=== PATIENT | male | born 1990 | race African-American/Black ===

== ENCOUNTER 2022-10-03 15:09 | Emergency (ER) | payer MEDICAID, SELFPAY ==
[2022-10-03 15:16] VITALS: BP 115/72; PULSE 81; RESP 20; TEMP 36.2; O2SAT 99; BMI 24.4
--- NOTE | 2022-10-03 15:41 | ED.GENADULT ---
HPI - General Adult General Time Seen by Provider: 15:41 Date Seen: 10/03/22 Chief complaint: Skin/Abscess/Foreign Body Stated complaint: Possible infected hemroids Time Seen by Provider: 10/03/22 15:12 Source: patient Mode of arrival: ambulatory Limitations: no limitations History of Present Illness HPI narrative: Patient is a pleasant 32-year-old black male who has had longstanding hemorrhoidal tissue and has been instructed to get surgery in the past. He notices when he has a bowel movement he has some protruding hemorrhoids. He has nothing external or any bleeding now, he has had limited output of bowel for the last couple of days. He has had some generalized pain in the area. He has had no fever chills. He is afebrile now. He is otherwise quite healthy. He is living with his friend in [place] currently. Related Data Allergies Allergy/AdvReac Type Severity Reaction Status Date / Time No Known Drug Allergies Allergy Verified 10/03/22 15:16 Review of Systems Status of ROS: Reports: 6 or more systems reviewed and unremarkable except as noted in History and below PFSH PFS Social History Smoking Status: Current every day smoker What tobacco products do you use: cigarettes Smoking packs per day: 1 Smoking cigarettes per day: 20.0 Years smoked: 15 Smoking pack-years: 15.00 Do you use any of these nicotine containing products: E-Cigarettes and Vaping Products Second hand tobacco smoke exposure: Yes How often do you have a drink containing alcohol: monthly or less How many standard drinks containing alcohol do you have on a typical day: 1 or 2 How often do you have six or more drinks on one occasion: Never AUDIT-C Alcohol total score: 1 Non-prescribed substance use: marijuana (any form), crack/cocaine and amphetamines/methamphetamines service: No Exam Narrative: Exam Narrative: Objective vital signs unremarkable in general patient apparent distress The patient's external rectal exam shows some hemorrhoidal tags he has got 1 small nonthrombosed hemorrhoid at about 4:00 a.m. Const: Vital Signs, click to edit/add: Vital Signs - 24 hr 10/03/22 15:16 Temperature 97.2 F L Pulse Rate [Pulse Oximeter] 81 Respiratory Rate 20 Blood Pressure [Le ft Upper Arm] 115/72 Pulse Oximetry 99 Oxygen Delivery Me thod Room Air Course Vital Signs Vital signs: Initial Vital Signs Temperature 97.2 F L 10/03/22 15:16 Temperature Source Temporal Artery Scan 10/03/22 15:16 Pulse Rate 81 10/03/22 15:16 Pulse Rhythm 10/03/22 15:16 Respiratory Rate 20 10/03/22 15:16 Blood Pressure 115/72 10/03/22 15:16 Blood Pressure Mean 86 10/03/22 15:16 Blood Pressure Position Right Lateral 10/03/22 15:16 Pulse Oximetry 99 10/03/22 15:16 Oxygen Delivery Method 10/03/22 15:16 Vital Signs Temperature 97.2 F L 10/03/22 15:16 Pulse Rate 81 10/03/22 15:16 Respiratory Rate 20 10/03/22 15:16 Blood Pressure 115/72 10/03/22 15:16 Pulse Oximetry 99 10/03/22 15:16 Oxygen Delivery Method 10/03/22 15:16 Temperature 97.2 F L 10/03/22 15:16 Pulse Rate 81 10/03/22 15:16 Respiratory Rate 20 10/03/22 15:16 Blood Pressure 115/72 10/03/22 15:16 Pulse Oximetry 99 10/03/22 15:16 Oxygen Delivery Method 10/03/22 15:16 Medical Decision Making MDM Narrative Medical decision making narrative: Patient is a 32-year-old male with a history of hemorrhoidal tissue what sounds like internal hemorrhoids that prolapse somewhat with a bowel movement. I think at this point he appears stable and would recommend some Anusol cream topically, he can use some Ultram as needed for discomfort, and will given Colace and Senokot recommendation. Will give him the number for the General surgery Clinic to follow up and get likely anoscopy and consideration of his situation. Return sooner problems or concerns. Discharge Plan Discharge Clinical Impression: Anal or rectal pain, Hemorrhoids Patient Disposition: Home w/ Parent or Adult Condition: Stable Instructions: Hemorrhoids (ED) Additional Instructions: Colace and Senokot as prescribed, Ultram as needed for pain, warm soaks in the bathtub 2 times a day for the next 5 days, general surgery appointment with our clinic, phone number is [phone]. Activity Level: Light activity Discharge Diet: Regular Stand Alone Forms: [facility] Info Instructions
[2022-10-03] MEDS: TRAMADOL HCL 50 MG TABLET 100 MG PO (15:44)
== END 2022-10-03 16:19 | disposition home or self-care (01) ==
LOC: ED 16:16
PROVIDERS: Emergency Provider Family Medicine
DX: K64.8 Other hemorrhoids (principal); K62.89 Other specified diseases of anus and rectum
CPT/HCPCS: 99283; A9270

== ENCOUNTER 2022-10-08 09:33 | Emergency (ER) | payer MEDICAID, SELFPAY ==
[2022-10-08 09:41] VITALS: BP 125/102; PULSE 86; RESP 20; TEMP 36.4; O2SAT 97; BMI 25.1
--- NOTE | 2022-10-08 09:47 | CRLHL7_ITS ---
For Patients: As a result of the Century Cures Act, medical imaging exams and procedure reports are released immediately into your electronic medical record. You may view this report before your referring provider. If you have questions, please contact your health care provider. INDICATION: Rectal pain. TECHNIQUE: CT abdomen and pelvis acquired with 83 cc Isovue 370 IV contrast. COMPARISON: None. FINDINGS: Lower chest: Scattered atelectasis. Liver: Focal fatty infiltration adjacent to the falciform ligament. Normal in size and attenuation. No suspicious masses. Gallbladder and bile ducts: Unremarkable. No stones or inflammation. No biliary dilatation. Pancreas: Unremarkable. No mass or inflammation. Spleen: Unremarkable. Normal in size. No masses. Adrenal glands: Bilateral adrenal gland nodules with low attenuation, statistically likely adenomas. Kidneys: Unremarkable. No suspicious masses, stones, or hydronephrosis. GI tract: Unremarkable. Normal in caliber. No sign of mass or inflammation. Normal appendix. Vasculature: Abdominal aorta is normal in caliber. Mesenteric arteries are patent. Lymph nodes: No lymphadenopathy. Peritoneum/Abdominal Wall: Unremarkable. No sign of mass or infiltration. No free air or significant free fluid. Pelvis: Unremarkable. Bones: Unremarkable for age. IMPRESSION: No acute intra-abdominal/pelvic abnormality, including drainable fluid collection. Please note that all CT scans at this facility use dose modulation, iterative reconstruction, and/or weight-based dosing when appropriate to reduce radiation dose to as low as reasonably achievable. Dictated by Kranthi Uriostegui MD @ 10/08/2022 12:47:48 PM (Electronically Signed)
--- NOTE | 2022-10-08 09:57 | ED_ITS ---
HPI - General Adult General Chief complaint: Skin/Abscess/Foreign Body Stated complaint: Hemorrhoids Time Seen by Provider: 10/08/22 09:44 History of Present Illness HPI narrative: Pt is a 32 year old gentleman who presents with several days of rectal pain. Pt states that he has a history of hemorrhoids and rectal fissures. Pt states the pain is awful. Pt sought care at [facility] last night but he found the care to be slow and insufficient. Pt has not been constipated. No change in his stool. No fevers or chills. No nausea or vomiting. Pt does note some puss drainage from his rectum. Pt has had previous episodes of rectal pain as above but today's issues are much worse. Pain extends out from his anus several centimeters in all directions. Related Data Previous Rx's Medication Instructions Recorded acetaminophen 300 mg-codeine 30 mg 1 tab PO BID PRN pain #10 tabs 10/08/22 tablet metronidazole 375 mg capsule 375 mg PO BID Proctitis #14 caps 10/08/22 (Flagyl) prednisone 20 mg tablet 20 mg PO BID #10 tabs 10/08/22 Allergies Allergy/AdvReac Type Severity Reaction Status Date / Time No Known Drug Allergies Allergy Verified 10/08/22 11:27 Review of Systems Status of ROS: Reports: 10 or more systems reviewed and unremarkable except as noted in History and below [facility] Social History Smoking Status: Current every day smoker What tobacco products do you use: cigarettes Smoking packs per day: 1 Smoking cigarettes per day: 20.0 Years smoked: 15 Smoking pack-years: 15.00 Do you use any of these nicotine containing products: E-Cigarettes and Vaping Products Second hand tobacco smoke exposure: Yes How often do you have a drink containing alcohol: monthly or less How many standard drinks containing alcohol do you have on a typical day: 1 or 2 How often do you have six or more drinks on one occasion: Never AUDIT-C Alcohol total score: 1 Non-prescribed substance use: marijuana (any form), crack/cocaine and amphetamines/methamphetamines service: No Exam Narrative: Exam Narrative: EXAM GENERAL: Patient appears comfortable and well. EYES: No scleral icterus. ENT: Tympanic membranes and oropharynx normal. THYROID: no thyroid nodules or thyromegaly. LYMPH: No supraclavicular or cervical lymphadenopathy. SKIN: Visible skin seen during exam normal or with benign process only. EXT: No dependent lower extremity pedal edema. HEART: Regular rate and rhythm with no murmurs, rubs, or gallops. LUNGS: Clear to auscultation bilaterally with no crackles or wheezes. ABD: Soft, non tender, non distended. PSYCH: Good eye contact, speech is not pressured. Rectal exam shows redundant hemorrhoid tissue with surrounding mild erythema and swelling. There is a small amount of exudative drainage from the rectal tissue. The external inspection was exquisitely tender and I did not insert my finger. Const: Vital Signs, click to edit/add: Vital Signs - 24 hr 10/08/22 09:41 10/08/22 11:50 10/08/22 13:30 Temperature 97.6 F 97.2 F L Pulse Rate [Pulse Oximeter] 86 87 68 Respiratory Rate 20 20 20 Blood Pressure [Le ft Upper Arm] 125/102 H 122/88 123/71 Pulse Oximetry 97 97 98 Oxygen Delivery Me thod Room Air Room Air Room Air Course Course Hospital Course: Pt seen and examined. CT abd and pelvis, CBC, CMP, ESR, UA, blood cultures ordered. Reevaluation(s) Reevaluation #1: CT abd pelvis unremarkable. Pt's labs unremarkable except mild leukocytosis. GC/Chlamydia swab collected from anus. Time: 13:14 Vital Signs Vital signs: Initial Vital Signs Temperature 97.6 F 10/08/22 09:41 Temperature Source Temporal Artery Scan 10/08/22 09:41 Pulse Rate 86 10/08/22 09:41 Respiratory Rate 20 10/08/22 09:41 Blood Pressure 125/102 H 10/08/22 09:41 Blood Pressure Mean 109 10/08/22 09:41 Blood Pressure Position Left Lateral 10/08/22 09:41 Pulse Oximetry 97 10/08/22 09:41 Oxygen Delivery Method 10/08/22 09:41 Vital Signs Temperature 97.6 F 10/08/22 09:41 Pulse Rate 86 10/08/22 09:41 Respiratory Rate 20 10/08/22 09:41 Blood Pressure 125/102 H 10/08/22 09:41 Pulse Oximetry 97 10/08/22 09:41 Oxygen Delivery Method 10/08/22 09:41 Temperature 97.2 F L 10/08/22 11:50 Pulse Rate 68 10/08/22 13:30 Respiratory Rate 20 10/08/22 13:30 Blood Pressure 123/71 10/08/22 13:30 Pulse Oximetry 98 10/08/22 13:30 Oxygen Delivery Method 10/08/22 13:30 Medical Decision Making MDM Narrative Medical decision making narrative: Pt is a 32 year old who comes in with severe rectal pain. Pt's evaluation showed old hemorroidal tissue on inspection with exudative drainage from the anus. No fissure seen. Exam was very painful. Pts CT unremarkable. Leukocytosis noted on lab. Pt denies rectal intercourse or STD history. Pt give Toradol and Dilaudid. Pt's anus cultured and GC Chlamydia collected. Will treat as proctitis with Prednisone and Flagyl with close follow up. Pt does not have a primary doctor. He can see me back in the office. Differential Diagnosis Differential Diagnosis: Protitis, Prostatitis, Inflamatory Bowel Disease, Perirectal Abscess, Lab Data Labs: Lab Results 10/08/22 10/08/22 10/08/22 Range/Units 10:00 10:00 10:00 WBC 12.02 H (4.50-11.00) K/uL RBC 5.44 (4.30-5.90) m/uL Hgb 17.0 (13.5-17.5) gm/dL Hct 48.3 (37.0-53.0) % MCV 89 (80-100) fL MCH 31 (26-34) pg MCHC 35 (32-36) gm/dL RDW Coeff of Antonio 12.1 (11.5-15.5) % Plt Count 234 (140-440) K/uL Neut % (Auto) 51.7 (42.0-72.0) % Lymph % (Auto) 34.9 (20-44) % Refugio % (Auto) 9.6 (0.0-11.0) % Eos % (Auto) 3.1 (0.0-7.0) % Baso % (Auto) 0.5 (0.0-3.0) % Neut # (Auto) 6.20 (1.7-7.0) K/uL Lymph # (Auto) 4.20 H (0.90-2.90) K/uL Refug[place] # (Auto) 1.20 H (0.00-0.90) K/UL Eos # (Auto) 0.40 (0.00-0.50) K/uL Baso # (Auto) 0.10 (0.00-0.30) K/uL ESR 11 (2-15) mm/hr Sodium 139 (135-149) mmol/L Potassium 3.7 (3.6-5.1) mmol/L Chloride 98 (96-114) mmol/L Carbon Dioxide 32 (20-32) mmol/L BUN 11 (5-24) mg/dL Creatinine 1.2 (0.5-1.5) mg/dL Estimated Creat Clear 89.19 Estimated GFR 83 ml/min Glucose 92 (60-115) mg/dL Calcium 10.1 (8.4-10.6) mg/dL Total Bilirubin 0.5 (0.1-1.5) mg/dL AST 34 (12-35) U/L ALT 26 (4-50) U/L Alkaline Phosphatase 89 (40-150) U/L Total Protein 8.8 H (6.0-8.3) g/dL Albumin 5.0 (3.3-5.0) g/dL C.trachomatis RNA (TMA) Chlamydia/GC Media Type N.gonorrhoeae Source D N.gonorrhoeae RNA TMA 10/08/22 Range/Units 13:15 WBC (4.50-11.00) K/uL RBC (4.30-5.90) m/uL Hgb (13.5-17.5) gm/dL Hct (37.0-53.0) % MCV (80-100) fL MCH (26-34) pg MCHC (32-36) gm/dL RDW Coeff of Antonio (11.5-15.5) % Plt Count (140-440) K/uL Neut % (Auto) (42.0-72.0) % Lymph % (Auto) (20-44) % [place] % (Auto) (0.0-11.0) % Eos % (Auto) (0.0-7.0) % Baso % (Auto) (0.0-3.0) % Neut # (Auto) (1.7-7.0) K/uL Lymph # (Auto) (0.90-2.90) K/uL [place]ug[place] # (Auto) (0.00-0.90) K/UL Eos # (Auto) (0.00-0.50) K/uL Baso # (Auto) (0.00-0.30) K/uL ESR (2-15) mm/hr Sodium (135-149) mmol/L Potassium (3.6-5.1) mmol/L Chloride (96-114) mmol/L Carbon Dioxide (20-32) mmol/L BUN (5-24) mg/dL Creatinine (0.5-1.5) mg/dL Estimated Creat Clear Estimated GFR ml/min Glucose (60-115) mg/dL Calcium (8.4-10.6) mg/dL Total Bilirubin (0.1-1.5) mg/dL AST (12-35) U/L ALT (4-50) U/L Alkaline Phosphatase (40-150) U/L Total Protein (6.0-8.3) g/dL Albumin (3.3-5.0) g/dL C.trachomatis RNA (TMA) Cancelled Chlamydia/GC Media Type Cancelled N.gonorrhoeae Source Cancelled D N.gonorrhoeae RNA TMA Cancelled Discharge Plan Discharge Clinical Impression: Acute proctitis Condition: Stable Instructions: Rectal Pain (ED) Additional Instructions: Sitz baths Please follow up with Dr. Duran next week on Wednesday, October 22 at 9:30 am at the [facility] [[email or web address] Can be reached at [phone] if you have any other issues. Prescriptions: New metronidazole [Flagyl] 375 mg capsule 375 mg PO BID Qty: 14 0RF prednisone 20 mg tablet 20 mg PO BID Qty: 10 0RF acetaminophen-codeine 300-30 mg tablet 1 tab PO BID PRN (Reason: pain) Qty: 10 0RF Follow Up/Referrals: Provider,Not a Local [Primary Care Provider] - Stand Alone Forms: [facility] [employer] Info Instructions
[2022-10-08] MEDS: KETOROLAC 30 MG/ML inj IVP (10:13)
[2022-10-08 10:15] LABS: Basophils Percent Auto 0.5 % (0.0-3.0); Eosinophils Percent Auto 3.1 % (0.0-7.0); Hematocrit 48.3 % (37.0-53.0); Immature Granulocytes Pct Auto 0.2 %; Lymphocytes Percent Auto 34.9 % (20-44); Mean Corpuscular HGB Conc 35 gm/dL (32-36); Mean Corpuscular Hemoglobin 31 pg (26-34); Mean Corpuscular Volume 89 fL (80-100); Monocytes Percent Auto 9.6 % (0.0-11.0); Neutrophils Percent Auto 51.7 % (42.0-72.0); Platelet Count* 234 K/uL (140-440); RDW Coefficient of Variation % 12.1 % (11.5-15.5); Red Blood Count 5.44 m/uL (4.30-5.90); White Blood Count* 12.02 K/uL (4.50-11.00)
[2022-10-08 10:21] LABS: Slide Review Reflex No
--- NOTE | 2022-10-08 10:24 | ED.NURSE ---
had an appointment with dr wilkerson today at 1100. [facility] called and informed that he is here and will not make his appintment.
[2022-10-08 10:30] LABS: Chloride* 98 mmol/L (96-114)
[2022-10-08 10:31] LABS: Potassium* 3.7 mmol/L (3.6-5.1); Sodium* 139 mmol/L (135-149)
[2022-10-08 10:33] LABS: Alkaline Phosphatase* 89 U/L (40-150); Aspartate Amino Transferase* 34 U/L (12-35); Bilirubin Total* 0.5 mg/dL (0.1-1.5); Blood Urea Nitrogen* 11 mg/dL (5-24); Carbon Dioxide* 32 mmol/L (20-32); Creatinine* 1.2 mg/dL (0.5-1.5); Est. Creatinine Clearance* 89.19; Estimated Glomerular Filt Rate 83 ml/min; Total Protein* 8.8 g/dL (6.0-8.3)
[2022-10-08 10:34] LABS: Alanine Aminotransferase* 26 U/L (4-50); Calcium* 10.1 mg/dL (8.4-10.6); Glucose* 92 mg/dL (60-115)
[2022-10-08 11:21] LABS: Erythrocyte SedimentationRate* 11 mm/hr (2-15)
[2022-10-08 11:50] VITALS: BP 122/88; PULSE 87; RESP 20; TEMP 36.2; O2SAT 97
[2022-10-08] MEDS: 0.9 % SODIUM CHLORIDE 1000 ml 1,000 ML IV (12:01)
[2022-10-08] MEDS: ONDANSETRON 2 MG/ML inj 4 MG IVP (12:04)
[2022-10-08] MEDS: HYDROmorphone 0.5 mg/0.5 ml inj IVP (12:05)
--- NOTE | 2022-10-08 13:24 | ED.NURSE ---
this scriber was in the room with Dr. Duran and patient collected the samples and sent to lab.
[2022-10-08 13:30] VITALS: BP 123/71; PULSE 68; RESP 20; O2SAT 98
[2022-10-08 15:35] LABS: Chlamydia DNA Amplified* NOT DETECTED (No Detected); GC DNA Amplified* NOT DETECTED (No Detected)
== END 2022-10-08 13:55 | disposition home or self-care (01) ==
PROVIDERS: Emergency Provider Internal Medicine
DX: K62.89 Other specified diseases of anus and rectum (principal)
CPT/HCPCS: 36415; 74177; 80053; 81003; 85025; 85651; 87040; 87070; 87186; 87491; 87591; 96361; 96374; 96375; 99283; 99284; 99285; J1170; J1885; J2405; J7030; Q9967

== ENCOUNTER 2022-10-16 08:34 | Outpatient (CLI) | payer MEDICAID, SELFPAY ==
[2022-10-16 09:26] LABS: SARS Antigen* negative (Negative)
--- NOTE | 2022-10-16 10:16 | W.ANESCHARGE ---
Anesthesia Charges Start Date/Time Anesthesia Start Date: 10/16/22 Anesthesia Start Time: 09:50 Stop Date/Time Anesthesia Stop Date: 10/16/22 Anesthesia Stop Time: 10:05 Summary Emergency: [employer]
== END 2022-10-16 08:35 | disposition home or self-care (01) ==
PROVIDERS: Visit Provider Internal Medicine
DX: R10.2 Pelvic and perineal pain (principal); K62.89 Other specified diseases of anus and rectum; K64.8 Other hemorrhoids; K63.5 Polyp of colon
CPT/HCPCS: 45380; 811; 87426; 88305; 99140; J2250; J2704; J3010; J3490

== ENCOUNTER 2023-11-03 18:13 | Emergency (ER) | payer OTHER, SELFPAY ==
[2023-11-03 18:38] VITALS: BP 107/72; PULSE 95; RESP 16; TEMP 36.6; O2SAT 99; BMI 25.1
--- NOTE | 2023-11-03 19:17 | ED_ITS ---
HPI - General Adult General Chief complaint: Skin/Abscess/Foreign Body Stated complaint: Hemorrhoids Time Seen by Provider: 11/03/23 18:19 History of Present Illness HPI narrative: Hx of hemorrhoids that have had to be lanced. Reports starting last night, noticed pain starting. Pain has significantly worsened throughout the day. States he can feel them externally. Has noticed pus and bleeding coming from his bottom. Concerned for infection, this has happened in his past 33-year-old young man presenting to the emergency department with concern of painful hemorrhoids. He has had inflamed hemorrhoids requiring excision. He does note that on his last colonoscopy some hemorrhoids were dealt with but that some remained. Started to have more pain again but recently increasing since last night in particular. Can barely walk. He has noted some purulence and blood coming from his butt. He has been constipated and has been having a little difficulty with urination as well. No fever. He does have diabetes type 2 in his problem list but has not been checking his blood sugars. He has not had a fever nor is he nauseated. Has recently returned to the area from [place]. Looks like was diagnosed with proctitis in the past. Denies anal receptive intercourse and any STIs. Notes a history of anal fissures and hemorrhoids. Essentially every bowel movement hurts and often accompanied by blood. He does not have daily bowel movements partially for this reason. Denies a history of pilonidal cyst or abscess diagnosis. Later becomes tearful due to the duration of these symptoms and that he is just always going through this. Shortly prior to arrival here today he felt something ?pop? in the anal area and felt back there noting that there was liquid now. About a year ago had similar occurrence. Colonoscopy revealed some inflamed rectal tissue. Prior to this colonoscopy was seen in the emergency department was diagnosed with proctitis. Mr. Song clarifies in later conversation that the diabetes listed in record is incorrect. He does not have a diagnosis of diabetes nor has he ever. Related Data Previous Rx's Medication Instructions Recorded ciprofloxacin HCl 500 mg tablet 500 mg PO BID 10 days #20 tabs 11/03/23 (Cipro) glycerin (adult) (Fleet Glycerin 1 supp RI DAILY PRN constipation 11/03/23 (Adult) rectal suppository) #12 ea lidocaine 4 % topical cream 1 applic topical QID PRN pain #28 04/10/24 grams polyethylene glycol 3350 17 17 g PO TID-QID PRN constipation 11/03/23 gram/dose oral powder (Miralax) #510 grams sodium phosphates 19 gram-7 118 ml RI DAILY PRN constipation 11/03/23 gram/118 mL enema (Fleet Enema) #532 mL witch tiffani leaf (hamamelis) 1 applic topical QID PRN anal pain 11/03/23 (witch tiffani topical liquid) #480 mL Allergies Allergy/AdvReac Type Severity Reaction Status Date / Time No Known Drug Allergies Allergy Verified 11/03/23 20:21 Review of Systems Status of ROS: Reports: 6 or more systems reviewed and unremarkable except as noted in History and below PFSH PFS Social History Smoking Status: Current every day smoker What tobacco products do you use: cigarettes Smoking packs per day: 1 Smoking cigarettes per day: 20.0 Years smoked: 15 Smoking pack-years: 15.00 Do you use any of these nicotine containing products: E-Cigarettes and Vaping Products Second hand tobacco smoke exposure: Yes How often do you have a drink containing alcohol: monthly or less How many standard drinks containing alcohol do you have on a typical day: 1 or 2 How often do you have six or more drinks on one occasion: Never AUDIT-C Alcohol total score: 1 Non-prescribed substance use: marijuana (any form), crack/cocaine and amphetamines/methamphetamines service: No Exam Narrative: Exam Narrative: Pleasant. Noted to be ambulating into the room very gingerly. Clearly very uncomfortable. Breathing easily. Lungs appear to be clear. Heart in elevated rate and regular rhythm. Abdomen is soft and without masses. A little tender in the suprapubic area. Skin is warm and dry. He is heavily tattooed. Lying on his side with his assistance to elevate buttock able to visualize anal area and there are 2 larger soft hemorrhoidal swellings without inflammatory changes. The uppermost one has a 3/16th area of erosion with central purulence. This hemorrhoidal tissue does not look to be recently thrombosed but is exquisitely tender such that I will not be able to perform PAT or I think anesthetize properly for further investigation. Later on repeat exam I am able to just insert a finger attempting to produce a little more purulence from this wound. That is about the extent of it though. No further exam is tolerable. Gauze placed. Const: Vital Signs, click to edit/add: Vital Signs - 24 hr 11/03/23 18:38 11/03/23 19:26 11/03/23 20:00 Temperature 97.9 F 97.9 F Pulse Rate [Pulse Oximeter] 95 85 Respiratory Rate 16 16 Blood Pressure [Le ft Upper Arm] 107/72 110/68 Pulse Oximetry 99 98 98 Oxygen Delivery Me thod Room Air Room Air 11/03/23 21:05 11/03/23 23:09 11/03/23 23:10 Temperature 97.9 F 98.5 F 98.5 F Pulse Rate [Pulse Oximeter] 81 81 Respiratory Rate 16 16 Blood Pressure [Le ft Upper Arm] 112/71 112/71 Pulse Oximetry 98 Oxygen Delivery Me thod Room Air Documenting provider has reviewed patient's vital signs: yes Course Vital Signs Vital signs: Initial Vital Signs Temperature 97.9 F 11/03/23 18:38 Temperature Source Temporal Artery Scan 11/03/23 18:38 Pulse Rate 95 11/03/23 18:38 Pulse Rhythm Regular 11/03/23 18:38 Pulse Strength 3+ Normal 11/03/23 18:38 Respiratory Rate 16 11/03/23 18:38 Blood Pressure 107/72 11/03/23 18:38 Blood Pressure Mean 83 11/03/23 18:38 Blood Pressure Position Sitting 11/03/23 18:38 Pulse Oximetry 99 11/03/23 18:38 Oxygen Delivery Method Room Air 11/03/23 18:38 Vital Signs Temperature 97.9 F 11/03/23 18:38 Pulse Rate 95 11/03/23 18:38 Respiratory Rate 16 11/03/23 18:38 Blood Pressure 107/72 11/03/23 18:38 Pulse Oximetry 99 11/03/23 18:38 Oxygen Delivery Method Room Air 11/03/23 18:38 Temperature 98.5 F 11/03/23 23:10 Pulse Rate 81 11/03/23 23:10 Respiratory Rate 16 11/03/23 23:10 Blood Pressure 112/71 11/03/23 23:10 Pulse Oximetry 98 11/03/23 23:09 Oxygen Delivery Method Room Air 11/03/23 23:09 Medications Administered Medications: Discontinued Medications Generic Name Dose Route Start Last Admin Trade Name Donaldq PRN Reason Stop Dose Admin Hydromorphone HCl 1 mg 11/03/23 19:29 11/03/23 19:58 Hydromorphone 0.5 Mg/0.5 Ml Inj IVP 11/03/23 19:30 1 mg ONCE ONE Administration Hydromorphone HCl 0.5 mg 11/03/23 21:23 11/03/23 21:27 Hydromorphone 0.5 Mg/0.5 Ml Inj IVP 11/03/23 21:24 0.5 mg ONCE ONE Administration Sodium Chloride 1,000 mls @ 1,000 mls/hr 11/03/23 19:29 11/03/23 21:05 0.9 % Sodium Chloride 1000 Ml IV 11/03/23 20:28 Infused .Q1H ONE Infusion Ketorolac Tromethamine 15 mg 11/03/23 19:29 11/03/23 19:58 Ketorolac 15 Mg/Ml Inj IVP 11/03/23 19:30 15 mg ONCE ONE Administration Medical Decision Making MDM Narrative Medical decision making narrative: I would have concern of potential perianal abscess. Will be imaging. Collecting blood work. This is also in the the setting of diabetes. I do not see evidence externally of Kenzie's gangrene at this time. Imaging pending. Blood cultures as well. May be complicated by some urinary retention or constipation. Also requested a bladder scan. IV fluids. Dilaudid and Toradol. Improved pain. White count as prior is mildly elevated. Reviewing images of contrasted pelvis by my read I thought I saw some mild inflammatory changes in the farzana anal area. No clear abscess. Radiology over-read however thankfully did not note this to be the case. See over-read below Study:?CT-Pelvis W/ 83CC ISOVUE 370-11/03/2023 8:22:29 PM Ordering Physician:DEAN Final Report: INDICATION: SEVERE ANAL AREA PAIN AND DRAINAGE. TECHNIQUE: CT pelvis with 83 cc of Isovue 370 IV contrast. COMPARISON: None. FINDINGS: The perianal and perineal regions are unremarkable without inflammatory changes or fluid collection. No foreign body identified. No definite rectal wall thickening. Normal-sized prostate. The bladder is unremarkable. No free fluid in the pelvis. Normal appendix. The osseous structures are unremarkable for age. The surrounding soft tissues are unremarkable. IMPRESSION: Unremarkable pelvic CT. No CT findings to explain the patient`s symptoms. This is somewhat puzzling presentation. He is clearly leaking a little purulent fluid from uppermost redundant hemorrhoidal tissue. It would appear by history that this ruptured today and is less than half the size. Overall symptoms for Mr. Song appear to be improved. I did review cultures collected from approximately 1 year ago visit. E coli with thakkar sensitivity and strep organism were collected. Anticipating likely treatment with ciprofloxacin outpatient. In the setting otherwise of anal fissures per his report and hemorrhoids and chronic anal pain, I wonder if excision of this hemorrhoidal tissue that appears to be filling with purulent fluid would be a recommended as an outpatient? It appears that this congests or infects periodically causing severe increase in baseline pain. I could not confirm today that there is any connecting fistula inside the anus. I did discuss this case with our surgeon on-call for further advice for outpatient cares and to obtain outpatient follow-up. Mr. Song is not interested opiate-type pain medication. See patient discharge plan further discussion Lab Data Lab results reviewed: Yes I reviewed the patient's lab results Labs: Lab Results 11/03/23 Range/Units 19:44 WBC 14.57 H (4.50-11.00) K/uL RBC 5.37 (4.30-5.90) m/uL Hgb 16.7 (13.5-17.5) gm/dL Hct 48.9 (37.0-53.0) % MCV 91 (80-100) fL MCH 31 (26-34) pg MCHC 34 (32-36) gm/dL RDW Coeff of Antonio 13.3 (11.5-15.5) % Plt Count 233 (140-440) K/uL Neut % (Auto) 63.2 (42.0-72.0) % Lymph % (Auto) 26.9 (20-44) % [place] % (Auto) 7.9 (0.0-11.0) % Eos % (Auto) 1.6 (0.0-7.0) % Baso % (Auto) 0.3 (0.0-3.0) % Neut # (Auto) 9.20 H (1.7-7.0) K/uL Lymph # (Auto) 3.90 H (0.90-2.90) K/uL [place] # (Auto) 1.20 H (0.00-0.90) K/UL Eos # (Auto) 0.20 (0.00-0.50) K/uL Baso # (Auto) 0.00 (0.00-0.30) K/uL Abs Immat Gran (auto) 0.00 (0.00-0.30) K/uL Imm/Tot Granulo (auto) 0.1 % Sodium 139 (135-149) mmol/L Potassium 3.4 L (3.6-5.1) mmol/L Chloride 100 (96-114) mmol/L Carbon Dioxide 28 (20-32) mmol/L Anion Gap 11 (7-15) mEq/L BUN 14 (5-24) mg/dL Creatinine 1.2 (0.5-1.5) mg/dL Estimated Creat Clear 88.38 Estimated GFR 82 ml/min Glucose 110 (60-115) mg/dL Calcium 10.3 (8.4-10.6) mg/dL C-Reactive Protein < 0.5 L (0.5-1.0) mg/dL Discharge Plan Discharge Clinical Impression: Anal pain, Proctitis, Hemorrhoids, Constipation Patient Disposition: Home w/ Parent or Adult Condition: Improved Additional Instructions: I spoke with Dr. Nieto general surgeon willian about your case. Recommendations in the short term or least over the next 5-7 days are to do Sitz baths a couple of times daily if possible. Stay well-hydrated drinking at least 2-3 L of water daily. Of course maintain good diet with plenty of fruits and vegetables, legumes. Use MiraLax or MiraLax equivalent in at least 8 oz of liquid per dose, and dosed enough times daily to produce 2 bowel movements daily if possible. You might consider getting a toilet top bidet for improved ease of cleaning. Since you are out of supplies, prescribing lidocaine cream/ointment, witch Tiffani, suppositories and enemas. If having hard bowel movements though, place suppository overnight. Would also consider enemas, which you could repeat an hour. If you are having significantly increased and uncontrolled pain particularly other areas of pain in the abdomen or develop a fever, be seen. Prescriptions: New glycerin (adult) [Fleet Glycerin (Adult)] Suppository 1 supp RI DAILY PRN (Reason: constipation) Qty: 12 1RF Fleet Enema 19-7 gram/118 mL enema 118 ml RI DAILY PRN (Reason: constipation) Qty: 532 1RF witch tiffani leaf (hamamelis) [witch tiffani] Liquid 1 applic topical QID PRN (Reason: anal pain) Qty: 480 1RF Rx Instructions: apply with cotton ball/pad lidocaine 4 % cream 1 applic topical QID PRN (Reason: pain) Qty: 28 1RF polyethylene glycol 3350 [Miralax] 17 gram/dose powder 17 g PO TID-QID PRN (Reason: constipation) Qty: 510 1RF Rx Instructions: in liquid ciprofloxacin HCl [Cipro] 500 mg tablet 500 mg PO BID 10 Days Qty: 20 0RF Follow Up/Referrals: Provider,Not a Local [Primary Care Provider] - Stand Alone Forms: MyHealth Info Instructions
--- NOTE | 2023-11-03 19:25 | CT_ITS ---
Patient: CHEY GIRON Facility:?[facility] Patient ID:?[id number] Site Patient ID:?[id number]. Site :?1991 Study:?CT-Pelvis W/ 83CC ISOVUE 370-11/03/2023 8:22:29 PM Ordering Physician:DEAN Final Report: INDICATION: SEVERE ANAL AREA PAIN AND DRAINAGE. TECHNIQUE: CT pelvis with 83 cc of Isovue 370 IV contrast. COMPARISON: None. FINDINGS: The perianal and perineal regions are unremarkable without inflammatory changes or fluid collection. No foreign body identified. No definite rectal wall thickening. Normal-sized prostate. The bladder is unremarkable. No free fluid in the pelvis. Normal appendix. The osseous structures are unremarkable for age. The surrounding soft tissues are unremarkable. IMPRESSION: Unremarkable pelvic CT. No CT findings to explain the patient`s symptoms. Please note that all CT scans at this facility use dose modulation, iterative reconstruction, and/or weight-based dosing when appropriate to reduce radiation dose to as low as reasonably achievable. Dictated by Nirmal Velasquez MD @ 11/03/2023 9:18:54 PM Signed by:?Nirmal Velasquez MD @11/03/2023 9:18:54 PM (Electronic Signature)
[2023-11-03 19:26] VITALS: O2SAT 98
--- OUTSIDE RECORDS SUMMARY | 2023-11-03 19:37 | XMS_ITS | Clinical Summary ---
Author Name Unknown Organization [facility] Address [place], [place] [address] Care Team Providers Care Ambulance Officer Name Role Phone Clinic, [facility] Primary Car e Provider Allergies Active Allergy Reactions Criticality Noted Date Comments Cat Dander Edema 03/07/2017 Swelling of eyes & stuffy nose Medications Medication Sig Dispensed Refills Start Date End Date Status albuterol HFA (PROAIR HFA) 90 mcg/actuation inhaler Inhale 2 Puffs by mouth 4 times daily if needed. 1 Inhaler 0 09/04/2014 Active acetaminophen (TYLENOL EXTRA STRGTH) 500 mg tablet Take 1,000 mg by mouth every 6 hours if needed. Max acetaminophen dose: 4000mg in 24 hrs. Active naloxone (Narcan) 4 mg/actuation nasal sprayIndications:C ocaine abuse (HC) Inhale 1 Oliver into affected nostril(s) each time if needed for Patient Difficult To Arouse or Resp Rate < 8 / min. Additional doses may be given every 2 to 3 minutes until emergency medical assistance arrives. 2 Each 07/09/2022 Active Active Problems Problem Noted Date Diagnosed Date Anxiety 06/14/2020 Asthma Leukocytosis Pancreatitis Cocaine abuse Immunizations Name Administration Dates Next Due DTP 12/12/1992,1991,1991 ,1991 DTaP 02/28/1997 Hepatitis A (Peds) 09/26/2008,04/19/2007 Hepatitis B (Peds) 04/17/1993,01/16/1992, 992 Hib Conjugate, Unspecified 12/12/1992,1991 ,1991,1991 MMR 03/09/2001,12/12/1992 Meningococcal Vaccine (Menactra) 04/19/2007 Oral Polio Vaccine 02/28/1997,12/12/1992, 992,1991 Td (Age >=7 Years) 03/07/2003 Tuberculin (PPD) 04/17/1993 Varicella Vaccine 09/26/2008,04/19/2007 Family History Medical History Relation Name Comments Asthma Father Gerardo Diez Relation Name Status Comments Father Gerardo Diez Alive Mother Verónica Alive Social History Tobacco Use Types Packs/Day Years Used Date Smoking Tobacco: Every Day Cigarettes 1 18.3 Started: 2005 Smokeless Tobacco: Never Tobacco Cessation:Ready to Q uit: Yes; Counseling Given: Not Answered Alcohol Use Standard Drinks/Week Comments Yes 0 (1 standard drink = 0.6 oz pur e alcohol) 0-5 on weekends Social Connections Answer Date Recorded Frequency of Communication with Friends and Fami ly Not on file 11/02/2022 Sex and Gender Information Value Date Recorded Sex Assigned at Not on file Gender Identity Not on file Sexual Orientation Not on file Obstetrics History Last Filed Vital Signs Vital Sign Reading Time Taken Comments Blood Pressure 125/60 07/21/2022 9:32 PM IT OPERATIONS MANAGER Pulse 110 07/21/2022 9:32 PM IT OPERATIONS MANAGER Temperature 36.1 ??C (97 ??F) 07/21/2022 9:32 PM IT OPERATIONS MANAGER Respiratory Rate 22 07/21/2022 9:32 PM IT OPERATIONS MANAGER Oxygen Saturation 97% 07/21/2022 9:32 PM IT OPERATIONS MANAGER Inhaled Oxygen Concentration - - Weight 83.5 kg (184 lb) 07/21/2022 9:32 PM IT OPERATIONS MANAGER Height 175.3 cm (5' 9) 07/21/2022 9:32 PM IT OPERATIONS MANAGER Body Mass Index 27.17 07/21/2022 9:32 PM IT OPERATIONS MANAGER Plan of Treatment Health Maintenance Due Date Last Done Comments Tdap 2002 Depression screening for age 12+ 2003 HIV for age 15-65 2006 Hepatitis C screening for ag e 18-79 2009 Tetanus booster 03/07/2013 03/07/2003 BMI (ht and wt on same day) for age 18+ 03/07/2018 03/07/2017 COVID-19 vaccine series (2022-24 season) 2023 Influenza for age 9-49 03/26/2024 Pneumococcal series for age 6-64 Aged Out No longer eligible based on patient's age to complete this topic Additional Health Concerns Infection Onset Date Last Indicated MRSA Clearance Comment:Infection Control Note: Hx of MRSA, surveillance criteria met, no need for further testing or isolation precautions. Do not delete or resolve the Infection Flag. 07/08/2022 07/08/2022 Advance Directives * Full Code (Latest Code Status on File) Date Activated Date Inactivated Comments 07/08/2022 5:19 PM 07/09/2022 2:47 PM Question Answer Comments Code Status Discussion: Reviewed Preferences Care Teams Ambulance Officer Relationship Specialty Start Date End Date [facility], [facility] [address] [place] [address] PCP - General 11/05/18
--- OUTSIDE RECORDS SUMMARY | 2023-11-03 19:38 | XMS_ITS | Clinical Summary ---
Author Name Unknown Organization [facility] Address [address] [place] [address] Care Team Providers Care Senior Linux Administrator Name Role Phone Becky Hoyos MD Primary Care Provider + [phone] Source Comments You are receiving this document as you are listed as the primary care provider,follow-up provider, or the patient has been referred to you for consultation.This is in compliance with the Medicare and[facility] EHR Incentive Program,which states Providers who transition their patient to another setting of careor provider of care or refers their patient to another provider of care shouldprovide summary care record for each transition of care or referral. [facility] Allerg[facility] No known active allergies Medications Medication Sig Dispensed Refills Start Date End Date Status polyethylene glycol 3350 (GLYCOLAX) 17 GM/SCOOP powderIndications:Res idual hemorrhoidal skin tags,External hemorrhoids without complication Take 17 g by mouth daily. Mix in 4-8 ounces of liquid and drink 507 g 2 03/28/2020 Active phenylephrine-shark liver oil-mineral oil-petrolatum (PREPARATIONH) 0.25-3-14-71.9 % rectal ointmentIndications:R esidual hemorrhoidal skin tags,External hemorrhoids without complication Insert rectally two times daily as needed. 28.4 g 1 03/28/2020 Active ALBUterol sulfate HFA 108 (90 Base) MCG/ACT inhalerIndications:Mi ld intermittent asthma without complication (HRC) Inhale 2 Puffs every 6 hours as needed for Wheezing or Shortness of Breath. 1 Each 07/30/2020 Active Spacer/Aero-Holding Chambers (AEROCHAMBER)Indicati ons:Mild intermittent asthma without complication (HRC) Use with inhaler as directed 1 Each 1 07/30/2020 Active imiquimod (ALDARA) 5 % creamIndications:Syl aidee warts Apply topically three times a week. 12 Each 3 07/31/2020 Active drug not in computerIndications:E xternal hemorrhoids without complication Lidocaine 5 % / Nifedipine 0.3 % Ointment. Apply topically three times a day. Apply a pea sized amount to affected area 60 Each 3 04/03/2021 Active Active Problems Problem Noted Date Diagnosed Date Internal prolapsed hemorrhoids 07/29/2020 Overview: Added automatically from request for surgery [id number] Anxiety 06/14/2020 External hemorrhoids without complication 2019 Immunizations Name Administration Dates Next Due DTP 12/12/1992,1991,1991 ,1991 DTaP 02/28/1997 HepA Ped/Adol (1-18 yrs) 09/26/2008,04/19/2007 HepB Ped/Adol (0-18 yrs) 04/17/1993,01/16/1992,0 1991 HepB, Unspecified Formulation 01/16/1992, 992 Hib, Unspecified Formulation 12/12/1992,11/13/18 92,1991,1991 MCV4 (Menactra) 04/19/2007 MMR 03/09/2001,12/12/1992 OPV, Trivalent (Orimune or tOPV) 02/28/1997,11/24,1991,1991 Td 03/07/2003 Varicella 09/26/2008,04/19/2007 Family History Medical History Relation Name Comments Kidney Disorder Father Cancer Maternal Grandfather Cancer, Colon Maternal Uncle Cancer Paternal Grandfather Relation Name Status Comments Father Alive Maternal Grandfather Maternal Uncle Alive Paternal Grandfather Social History Tobacco Use Types Packs/Day Years Used Date Smoking Tobacco: Every Day Cigarettes Smokeless Tobacco: Never Alcohol Use Standard Drinks/Week Comments Yes 0 (1 standard drink = 0.6 oz pur e alcohol) occ PHQ-2 Answer Date Recorded PHQ-2 Score 2 03/28/2020 Sex and Gender Information Value Date Recorded Sex Assigned at Not on file Gender Identity Not on file Sexual Orientation Not on file Last Filed Vital Signs Vital Sign Reading Time Taken Comments Blood Pressure 189/107 10/08/2022 5:45 AM CDT Pulse 105 10/08/2022 5:45 AM CDT Temperature 37.1 ??C (98.7 ??F) 07/30/2020 10:[address] Respiratory Rate 26 10/08/2022 5:45 AM CDT Oxygen Saturation 99% 10/08/2022 5:45 AM CDT Inhaled Oxygen Concentration - - Weight 88.6 kg (195 lb 6.4 oz) 07/30/2020 10:06 AM DUMPSTER OPERATOR Height 175.3 cm (5' 9) 07/30/2020 10:06 AM DUMPSTER OPERATOR Body Mass Index 28.86 07/30/2020 10:06 AM DUMPSTER OPERATOR Plan of Treatment Health Maintenance Due Date Last Done Comments Pneumococcal (1 - PCV) 1997 DTaP/Tdap/Td (6 - Tdap) 03/08/2003 03/07/20 03, 02/28/1997, 12/12/1992, Additional history exists Adult Preventive Visit 07/30/2022 07/30/2020 COVID-19 Vaccine ( season) 2023 Influenza (#1) 2023 Zoster/Shingles (1 of 2) 2041 Hib Completed 12/12/1992, 10/25, 1991, Additional history exists HepB Completed 04/17/1993, 12/25, 01/16/1992, Additional history exists IPV (Polio) Completed 02/28/1997, 11/24, 1991, Additional history exists MCV4 Aged Out 04/19/2007 No longer eligi ble based on patient's age to complete this topic HepA Completed 09/26/2008, 04/19/2007 HIV Screening (Preventive Services) Completed 07/30/2020 Hep C Screening (Preventive Services) Completed 07/30/2020 HPV Vaccine Aged Out No longer eligi ble based on patient's age to complete this topic Procedures Procedure Name Priority Date/Time Associated Diagnosis Comments HIV 1/2 AG/AB 4TH GEN Routine 07/30/2020 11:29 AM DUMPSTER OPERATOR Unprotected sex HEPATITIS C ANTIBODY, WITH REFLEX Routine 07/30/2020 11:29 AM DUMPSTER OPERATOR Unprotected sex from Last 3 Months or Most Recently Relevant to Health Maintenance Results * HIV 1/2 Ag/Ab 4th Generation (07/30/2020 11:29 AM DUMPSTER OPERATOR) HIV 1/2 Antigen/Anti body (4th generation) Negative (Non Reactive) Negative (Non Reactive) 07/30/2020 5:33 PM DUMPSTER OPERATOR [facility] Comment:HIV-1 p24 Antigen an d HIV-1/HIV-2 Antibody not detected Blood Venipuncture / Unknown 07/30/2020 11:29 AM DUMPSTER OPERATOR 07/30/2020 11:51 AM DUMPSTER OPERATOR Dereck Yadav MD LAB_1 Performing Organization Address [facility] de Phone Number [facility] [address] [phone] * Hepatitis C Antibody, with Reflex (07/30/2020 11:29 AM DUMPSTER OPERATOR) Pathologist [facility] Hepatitis C Antibody Negative (Non Reactive) Negative (Non Reactive) 07/30/2020 5:32 PM DUMPSTER OPERATOR [facility] Comment:Antibodies to HCV no t detected. Does not exclude the possiblity of exposure to HCV. Blood Venipuncture / Unknown 07/30/2020 11:29 AM DUMPSTER OPERATOR 07/30/2020 11:51 AM DUMPSTER OPERATOR Dereck Yadav MD LAB_1 Performing Organization Address [facility] Co de Phone Number [facility] [address] [place] [address] from Last 3 Months or Most Recently Relevant to Health Maintenance Care Teams Senior Linux Administrator Relationship Specialty Start Date End Date Becky Hoyos MD [address] [place] [id number] PCP - General 03/08/23
[2023-11-03 19:55] LABS: Basophils Percent Auto 0.3 % (0.0-3.0); Eosinophils Percent Auto 1.6 % (0.0-7.0); Hematocrit 48.9 % (37.0-53.0); Hemoglobin* 16.7 gm/dL (13.5-17.5); Immature Granulocytes Pct Auto 0.1 %; Lymphocytes Percent Auto 26.9 % (20-44); Mean Corpuscular HGB Conc 34 gm/dL (32-36); Mean Corpuscular Hemoglobin 31 pg (26-34); Mean Corpuscular Volume 91 fL (80-100); Monocytes Percent Auto 7.9 % (0.0-11.0); Neutrophils Percent Auto 63.2 % (42.0-72.0); Platelet Count* 233 K/uL (140-440); RDW Coefficient of Variation % 13.3 % (11.5-15.5); Red Blood Count 5.37 m/uL (4.30-5.90); Slide Review Reflex No; White Blood Count* 14.57 K/uL (4.50-11.00)
[2023-11-03] MEDS: KETOROLAC 15 MG/ML inj IVP (19:58)
[2023-11-03] MEDS: 0.9 % SODIUM CHLORIDE 1000 ml 1,000 ML IV (19:58)
[2023-11-03] MEDS: HYDROmorphone 0.5 mg/0.5 ml inj 1 MG IVP (19:58)
[2023-11-03 20:00] VITALS: BP 110/68; PULSE 85; RESP 16; TEMP 36.6; O2SAT 98
[2023-11-03 20:09] LABS: Chloride* 100 mmol/L (96-114)
--- NOTE | 2023-11-03 20:09 | PC.NURSE ---
Pt to radiology via w/c
[2023-11-03 20:10] LABS: Potassium* 3.4 mmol/L (3.6-5.1); Sodium* 139 mmol/L (135-149)
[2023-11-03 20:12] LABS: Creatinine* 1.2 mg/dL (0.5-1.5); Est. Creatinine Clearance* 88.38; Estimated Glomerular Filt Rate 82 ml/min
[2023-11-03 20:13] LABS: Anion Gap 11 mEq/L (7-15); Blood Urea Nitrogen* 14 mg/dL (5-24); Carbon Dioxide* 28 mmol/L (20-32); Glucose* 110 mg/dL (60-115)
[2023-11-03 20:14] LABS: Calcium* 10.3 mg/dL (8.4-10.6)
[2023-11-03 20:19] LABS: C Reactive Protein* < 0.5 mg/dL (0.5-1.0)
[2023-11-03 21:05] VITALS: TEMP 36.6
[2023-11-03] MEDS: HYDROmorphone 0.5 mg/0.5 ml inj IVP (21:27)
[2023-11-03 23:09] VITALS: BP 112/71; PULSE 81; RESP 16; TEMP 36.9; O2SAT 98
[2023-11-03 23:10] VITALS: BP 112/71; PULSE 81; RESP 16; TEMP 36.9
== END 2023-11-03 23:10 | disposition home or self-care (01) ==
PROVIDERS: Emergency Provider Family Medicine
DX: K64.9 Unspecified hemorrhoids (principal); K62.89 Other specified diseases of anus and rectum; K59.00 Constipation, unspecified
CPT/HCPCS: 36415; 72193; 80048; 81001; 85025; 86140; 87040; 94761; 99284; 99285; J1170; J1885; J7030; Q9967

== ENCOUNTER 2024-01-30 03:47 | Emergency (ER) | payer OTHER, SELFPAY ==
[2024-01-30 04:06] VITALS: BP 130/73; PULSE 91; RESP 20; TEMP 36.4; O2SAT 97; BMI 26.4
--- NOTE | 2024-01-30 04:10 | ED.GENADULT ---
HPI - General Adult General Chief complaint: Unspecified Complaint, Adult Stated complaint: bad hemorrhoids Time Seen by Provider: 01/30/24 03:56 History of Present Illness HPI narrative: Patient is very interesting 33-year-old gentleman who I have not seen for over a year but who has had 10 years of perirectal pain. Patient has had recurrent CT scans and actually did a colonoscopy removing a small polyp. Patient has hemorrhoidal tissue externally that often times gets infected any does well was treatment with oral antibiotics. He has not had perirectal abscess in the past. [facility] as similar to previous. Patient was at [facility] treated for gonorrhea last night. She has a urethral only infection. Patient's urethritis has improved. Patient has no signs of systemic infection. No fevers chills night sweats cough or shortness of breath. Related Data Home Medications ?Medication ?Instructions ?Recorded ?Confirmed doxycycline hyclate 100 mg capsule 100 mg PO BID 01/30/24 01/30/24 Previous Rx's ?Medication ?Instructions ?Recorded glycerin (adult) (Fleet Glycerin 1 supp IA DAILY PRN constipation 11/03/23 (Adult) rectal suppository) #12 ea lidocaine 4 % topical cream 1 applic topical QID PRN pain #28 11/03/23 grams polyethylene glycol 3350 17 17 g PO TID-QID PRN constipation 11/03/23 gram/dose oral powder (Miralax) #510 grams sodium phosphates 19 gram-7 118 ml IA DAILY PRN constipation 11/03/23 gram/118 mL enema (Fleet Enema) #532 mL witch tiffani leaf (hamamelis) 1 applic topical QID PRN anal pain 11/03/23 (witch tiffani topical liquid) #480 mL Review of Systems Status of ROS: Reports: 10 or more systems reviewed and unremarkable except as noted in History and below PFSH PFSH Social History Smoking Status: Current every day smoker What tobacco products do you use: cigarettes Smoking packs per day: 1 Smoking cigarettes per day: 20.0 Years smoked: 15 Smoking pack-years: 15.00 Do you use any of these nicotine containing products: E-Cigarettes and Vaping Products Second hand tobacco smoke exposure: Yes How often do you have a drink containing alcohol: monthly or less How many standard drinks containing alcohol do you have on a typical day: 1 or 2 How often do you have six or more drinks on one occasion: Never AUDIT-C Alcohol total score: 1 Non-prescribed substance use: marijuana (any form), crack/cocaine and amphetamines/methamphetamines service: No Exam Narrative: Exam Narrative: EXAM GENERAL: Patient appears comfortable and well. EYES: No scleral icterus. LYMPH: No supraclavicular or cervical lymphadenopathy. SKIN: Visible skin seen during exam normal or with benign process only. EXT: No dependent lower extremity pedal edema. HEART: Regular rate and rhythm with no murmurs, rubs, or gallops. LUNGS: Clear to auscultation bilaterally with no crackles or wheezes. ABD: Soft, non tender, non distended. PSYCH: Good eye contact, speech is not pressured. Perirectal exam shows hemorrhoidal tissues with exudative drainage. This is consistent with previous exams. Course Course ED Course: See below Medical Decision Making MDM Narrative Medical decision making narrative: Patient is a 33-year-old gentleman with chronic perirectal pain. He has had recurrent CT scans no perirectal abscess has been seen. He is currently on doxycycline for urethritis consistent with gonorrhea/chlamydia and did receive an IM injection at [facility] last night. He has had a colonoscopy to investigate the symptoms and no significant findings were seen with the exception of a minor polyp. I did consider repeating his CT scan running labs however this is very similar to previous presentations. I do think broadening the spectrum his antibiotics with Keflex is reasonable I did give him a limited supply of [place] for his perirectal pain. I have not seen him for over a year but he states he has continued to have problems. If he continues to have difficulties would recommend follow-up with [facility] prior to any further imaging. Discharge Plan Discharge Clinical Impression: Anal or rectal pain Patient Disposition: Home, Self-Care Condition: Stable Instructions: Cellulitis (ED) Additional Instructions: Keflex as directed [place] as directed Keep stool soft Follow-up with your doctor as needed. Activity Level: No Restrictions Discharge Diet: Regular Prescriptions: No Action glycerin (adult) [Fleet Glycerin (Adult)] Suppository 1 supp IA DAILY PRN (Reason: constipation) Qty: 12 1RF Fleet Enema 19-7 gram/118 mL enema 118 ml IA DAILY PRN (Reason: constipation) Qty: 532 1RF witch tiffani leaf (hamamelis) [witch tiffani] Liquid 1 applic topical QID PRN (Reason: anal pain) Qty: 480 1RF Rx Instructions: apply with cotton ball/pad lidocaine 4 % cream 1 applic topical QID PRN (Reason: pain) Qty: 28 1RF polyethylene glycol 3350 [Miralax] 17 gram/dose powder 17 g PO TID-QID PRN (Reason: constipation) Qty: 510 1RF Rx Instructions: in liquid doxycycline hyclate 100 mg capsule 100 mg PO BID Follow Up/Referrals: Provider,Not a Local [Primary Care Provider] - Stand Alone Forms: MyHealth Info Instructions
--- OUTSIDE RECORDS SUMMARY | 2024-01-30 04:18 | XMS_ITS | Referral Summary ---
Author Organization [facility] Address [address] [place] [address] Care Team Providers Care Pattern Cutter Name Role Phone No Ref-Primary, Physician Primary Care Provider Encounters Date Type Department Care Team Description 01/29/2024 Telephone [facility] [address] [place] [address] Jazmyne Smith RN Results 01/28/2024 Travel 01/28/2024 11:32 AM CDT - 01/28/2024 4:18 PM CDT Emergency [facility] [address] [place] [address] Robby Catherine MD Urethritis; Inguinal adenopathy Discharge Disposition: Home or Self Care from Last 3 Months Allergies No known active allergies Medications Medication Sig Dispensed Refills Start Date End Date Status doxycycline hyclate (VIBRAMYCIN) 100 MG capsule Take 1 capsule (100 mg) by mouth 2 times daily for 7 days 14 capsule 01/28/2024 02/04/2024 Active Active Problems Problem Noted Date Diagnosed Date Asthma 01/28/2024 Cocaine substance abuse 01/28/2024 Pancreatitis 01/28/2024 Internal prolapsed hemorrhoids 07/29/2020 Overview: Added automatically from request for surgery [id number] Anxiety 06/14/2020 External hemorrhoids without complication 2019 Social History Tobacco Use Types Packs/Day Years Used Date Smoking Tobacco: Never Assessed Adolescent Education Answer Date Record ed Getting School Help Needed Not on file 01/27 Sex and Gender Information Value Date Recorded Sex Assigned at Not on file Gender Identity Not on file Sexual Orientation Not on file Last Filed Vital Signs Vital Sign Reading Time Taken Comments Blood Pressure 139/64 01/28/2024 11:11 AM CDT Pulse 83 01/28/2024 1:03 PM CDT Temperature 36.6 ??C (97.9 ??F) 01/28/2024 11:11 AM C DT Respiratory Rate 16 01/28/2024 11:11 AM CDT Oxygen Saturation 96% 01/28/2024 1:03 PM CDT Inhaled Oxygen Concentration - - Weight 79.8 kg (176 lb) 01/28/2024 11:11 AM CDT Height 175.3 cm (5' 9) 01/28/2024 11:11 AM CDT Body Mass Index 25.99 01/28/2024 11:11 AM CDT Plan of Treatment Upcoming Encounters Date Type Department Care Team (Late st Contact Info) Description 02/17/2024 1:40 PM CDT Office Visit [facility] [address] [place] [phone] Elaine Blandon PA-C [facility] [address] [place] [address] Biju Grossman PA-C [address] [place] [address] Procedures Procedure Name Priority Date/Time Associated Diagnosis Comments URINE CULTURE STAT 01/28/2024 3:45 PM CDT ROUTINE UA WITH MICROSCOPIC REFLEX TO CULTURE STAT 01/28/2024 3:45 PM CDT NEISSERIA GONORRHOEAE PCR STAT 01/28/2024 3:24 PM CDT CHLAMYDIA TRACHOMATIS PCR STAT 01/28/2024 3:[address] ABDOMEN PELVIS W CONTRAST STAT 01/28/2024 2:42 PM CDT CBC WITH PLATELETS & DIFFERENTIAL STAT 01/28/2024 1:21 PM CDT MANUAL DIFFERENTIAL STAT 01/28/2024 1 :21 PM CDT CBC WITH PLATELETS AND DIFFERENTIAL STAT 01/28/2024 1:21 PM CDT MAGNESIUM STAT 01/28/2024 1:21 PM CDT LIPASE STAT 01/28/2024 1:21 PM CDT HEPATIC FUNCTION PANEL STAT 01/28/2024 1:21 PM CDT BASIC METABOLIC PANEL STAT 01/28/2024 1:21 PM CDT CHLAMYDIA TRACHOMATIS/NEISSERIA GONORRHOEAE BY PCR STAT 01/28/2024 1:13 PM CDT from Last 3 Months Results * (ABNORMAL) UA with Microscopic reflex to Culture (01/28/2024 3:45 PM CDT) Color Urine Colorless Colorless, Straw, Light Yellow, Yellow 01/28/2024 4:00 PM T [facility] Appearance Urine Clear Clear 01/28/2024 4:00 PM T [facility] Glucose Urine Negative Negative mg/dL 01/28/2024 4:00 PM T [facility] Bilirubin Urine Negative Negative 4:00 PM T [facility] Ketones Urine Trace(A) Negative mg/dL 01/28/2024 4:00 PM [facility] Specific [place] Urine 1.020 1.003 - 1.035 OMAR 01/28/2024 4:00 PM [facility] Blood Urine 0.2 mg/dL(A) Negative 01/28/2024 4:00 PM [facility] pH Urine 6.0 5.0 - 7.0 01/28/2024 4:00 PM [facility] Protein Albumin Urine 70(A) Negative mg/dL 01/28/2024 4:00 PM [facility] Urobilinogen Urine <2.0 <2.0 mg/dL 01/28/2024 4:00 PM CDT [facility] Nitrite Urine Negative Negative 01/28/2024 4:00 PM CDT [facility] Leukocyte Esterase Urine [address]/uL(A) Negative 01/28/2024 4:00 PM CDT [facility] Mucus Urine Present(A) None Seen /LPF 01/28/2024 4:00 PM CDT [facility] RBC Urine 23(H) <=2 /HPF 01/28/2024 4:00 PM CDT [facility] WBC Urine 75(H) <=5 /HPF 01/28/2024 4:00 PM CDT [facility] Squamous Epithelials Urine <1 <=1 /HPF 01/28/2024 4:00 PM CDT [facility] Urine URINE SPECIMEN OBTAINED BY CLEAN CATCH PROCEDURE / Unknown Non-blood Collection / Unknown 01/28/2024 3:45 PM CDT 01/28/2024 3:48 PM CDT Narrative [facility] - 01/28/2024 4:00 PM CDT Urine Culture ordered based on laboratory criteria Elaine Blandon PA-C LAB - URINE ORDER MODESTA [facility] [address] [place] [address], [facility] * Urine Culture (01/28/2024 3:45 PM CDT) Culture <10,000 CFU/mL Mixture of Urogenital Wen 01/29/2024 2:01 PM CDT [facility] Urine URINE SPECIMEN OBTAINED BY CLEAN CATCH PROCEDURE / Unknown Non-blood Collection / Unknown 01/28/2024 3:45 PM CDT 01/28/2024 4:00 PM CDT Elaine COOPER-C LAB - MICRO GENER AL ORDERABLES [facility] Inf. Diseases Diag. Lab [address] [place] [address], [facility] * (ABNORMAL) Neisseria gonorrhoea PCR (01/28/2024 3:24 PM CDT) Neisseria gonorrhoeae Positive( A) Negative 01/29/2024 1:05 PM CDT [facility] Comment:Positive for N. gono rrhoeae rRNA by gasoline tractor operator mediated amplification. As is true for all non-culture methods, a positive specimen obtained from a patient after therapeutic treatment cannot be interpreted as indicating the presence of viable N. gonorrhoeae. Urine VOIDED URINE SPECIMEN / Unknown Non-blood Collection / Unknown 01/28/2024 3:24 PM CDT 01/28/2024 3:27 PM CDT Elaine COOPER-[employer] LAB - MICRO GENER AL ORDERABLES Performing Organization Address City/[facility] Co de Phone Number [facility] Inf. Diseases Diag. Lab [address], [address] * Chlamydia trachomatis PCR (01/28/2024 3:24 PM CDT) Chlamydia trachomatis Negative Negative 01/29/2024 1:05 PM CDT [facility] Comment:A negative result by gasoline tractor operator mediated amplification does not preclude the presence of C. trachomatis infection because results are dependent on proper and adequate collection, absence of inhibitors and sufficient rRNA to be detected. Urine VOIDED URINE SPECIMEN / Unknown Non-blood Collection / Unknown 01/28/2024 3:24 PM CDT 01/28/2024 3:27 PM CDT Elaine CO[employer] LAB - MICRO GENER AL ORDERABLES [facility] Inf. Diseases Diag. Lab [address], [address] * CT Abdomen Pelvis w Contrast (01/28/2024 2:42 PM CDT) Anatomical Region Laterality Modality Abdomen/Pelvis, SUBRAD CT BETHEL DY, UMP CT ABDOMEN PELVIS, RAD CT Computed Tomography 01/28/2024 2:42 PM CDT Impressions 01/28/2024 2:54 PM CDT IMPRESSION: 1. ??Left external iliac lymphadenopathy. 2. ??A 3.7 cm left adrenal nodule. A 1.1 cm right adrenal nodule. See guidelines below. REFERENCE: Management of Incidental Adrenal Masses: A White Paper of the ACR Incidental Findings Committee. J Am [place] Radiol 2017;14:2002-9779. ? 1 cm and < 4 cm: No prior imaging and no history of cancer: 1-2 cm: probably benign. Consider 12-month CT adrenal follow-up. >2cm, <4 cm: Adrenal CT. No prior imaging and history of cancer: Adrenal CT Prior Imaging: Stable for 1 year: Benign. No follow-up. New or enlarging: --Adrenal CT or resection if no history of cancer. --PET/CT or biopsy if positive history of cancer. Narrative 01/28/2024 2:54 PM CDT EXAM: CT ABDOMEN PELVIS W CONTRAST LOCATION: [facility] DATE: 01/28/2024 INDICATION: ?stone with left CVA tenderness, llq tenderness, penile discharge and pain COMPARISON: None. TECHNIQUE: CT scan of the abdomen and pelvis was performed following injection of IV contrast. Multiplanar reformats were obtained. Dose reduction techniques were used. CONTRAST: Isovue 370 90ml FINDINGS: LOWER CHEST: Normal. HEPATOBILIARY: Normal. PANCREAS: Normal. SPLEEN: Normal. ADRENAL GLANDS: A 3.7 x 2.2 cm nodule in the left adrenal gland, image 34:5. A 1.1 x 1.0 cm nodule in the right adrenal gland, image 45:3. KIDNEYS/BLADDER: Normal. BOWEL: No obstruction or inflammatory change. Normal appendix. LYMPH NODES: An enlarged left external iliac lymph node measuring 1.5 cm in short axis, image 185:3. VASCULATURE: No abdominal aortic aneurysm. PELVIC ORGANS: Normal. MUSCULOSKELETAL: Normal. Procedure Note Keron Viveros MD - 01/28/2024 EXAM: CT ABDOMEN PELVIS W CONTRAST LOCATION: [facility] DATE: 01/28/2024 INDICATION: ?stone with left CVA tenderness, llq tenderness, peniledischarge and pain COMPARISON: None. TECHNIQUE: CT scan of the abdomen and pelvis was performed followinginjection of IV contrast. Multiplanar reformats were obtained. Dosereduction techniques were used. CONTRAST: Isovue 370 90ml FINDINGS: LOWER CHEST: Normal. HEPATOBILIARY: Normal. PANCREAS: Normal. SPLEEN: Normal. ADRENAL GLANDS: A 3.7 x 2.2 cm nodule in the left adrenal gland, image34:5. A 1.1 x 1.0 cm nodule in the right adrenal gland, image 45:3. KIDNEYS/BLADDER: Normal. BOWEL: No obstruction or inflammatory change. Normal appendix. LYMPH NODES: An enlarged left external iliac lymph node measuring 1.5 cmin short axis, image 185:3. VASCULATURE: No abdominal aortic aneurysm. PELVIC ORGANS: Normal. MUSCULOSKELETAL: Normal. IMPRESSION: 1. Left external iliac lymphadenopathy. 2. A 3.7 cm left adrenal nodule. A 1.1 cm right adrenal nodule. Seeguidelines below. REFERENCE: Management of Incidental Adrenal Masses: A White Paper of the ACRIncidental Findings Committee. J Am [place] Radiol 2017;14:3133-5064. ? 1 cm and < 4 cm: No prior imaging and no history of cancer: 1-2 cm: probably benign. Consider 12-month CT adrenal follow-up. >2cm, <4 cm: Adrenal CT. No prior imaging and history of cancer: Adrenal CT Prior Imaging: Stable for 1 year: Benign. No follow-up. New or enlarging: --Adrenal CT or resection if no history of cancer. --PET/CT or biopsy if positive history of cancer. Elaine Blandon PA-C [facility] ORDER[facility]LES * (ABNORMAL) Manual Differential (01/28/2024 1:21 PM CDT) % Neutrophils 67 % OMAR 01/28/2024 2:05 PM CDT [facility] % Lymphocytes 25 % OMAR 01/28/2024 2:05 PM CDT [facility] % Monocytes 8 % OMAR 01/28/2024 2:05 PM CDT [facility] % Eosinophils 0 % OMAR 01/28/2024 2:05 PM CDT [facility] % Basophils 0 % OMAR 01/28/2024 2:05 PM CDT [facility] Absolute Neutrophils 10.0(H) 1.6 - 8.3 10e3/uL OMAR 01/28/2024 2:05 PM CDT [facility] Absolute Lymphocytes 3.7 0.8 - 5.3 10e3/uL OMAR 01/28/2024 2:05 PM CDT [facility] Absolute Monocytes 1.2 0.0 - 1.3 10e3/uL OMAR 01/28/2024 2:05 PM CDT [facility] Absolute Eosinophils 0.0 0.0 - 0.7 10e3/uL OMAR 01/28/2024 2:05 PM CDT [facility] Absolute Basophils 0.0 0.0 - 0.2 10e3/uL OMAR 01/28/2024 2:05 PM CDT [facility] RBC Morphology Confirmed RBC Indices OMAR 01/28/2024 2:05 PM CDT [facility] Platelet Assessment Automated Count Confirmed. Platelet morphology is normal. Automated Count Confirmed. Platelet morphology is normal. [facility] 01/28/2024 2:05 PM CDT [facility] Blood BLOOD SPECIMEN / Unknown Venipuncture / Unknown 01/28/2024 1:21 PM CDT 01/28/2024 1:26 PM CDT Elaine Blandon PA-C LAB - BLOOD ORDER MODESTA [facility] [address] [place], [place] [address] * (ABNORMAL) CBC with platelets and differential (01/28/2024 1:21 PM CDT) WBC Count 14.9(H) 4.0 - 11.0 10e3/uL 01/28/2024 2:05 PM CDT [facility] RBC Count 5.06 4.40 - 5.90 10e6/uL 01/28/2024 2:05 PM CDT [facility] Hemoglobin 15.9 13.3 - 17.7 g/dL 01/28/2024 2:05 PM CDT [facility] Hematocrit 46.5 40.0 - 53.0 % 01/28/2024 2:05 PM CDT [facility] MCV 92 78 - 100 fL 01/28/2024 2:05 PM CDT [facility] MCH 31.4 26.5 - 33.0 pg 01/28/2024 2:05 PM CDT [facility] MCHC 34.2 31.5 - 36.5 g/dL 01/28/2024 2:05 PM CDT [facility] RDW 13.3 10.0 - 15.0 % 01/28/2024 2:05 PM CDT [facility] Platelet Count 201 150 - 450 10e3/uL 01/28/2024 2:05 PM CDT [facility] NRBCs per 100 WBC 0 <1 /100 01/28/2024 2:05 PM CDT [facility] Absolute NRBCs 0.0 10e3/uL 01/28/2024 2:05 PM CDT [facility] Blood BLOOD SPECIMEN / Unknown Venipuncture / Unknown 01/28/2024 1:21 PM CDT 01/28/2024 1:26 PM CDT Elaine COOPER-C LAB - BLOOD ORDER MODESTA [facility] [place] [address], [facility] * Magnesium (01/28/2024 1:21 PM CDT) Magnesium 2.1 1.7 - 2.3 mg/dL 01/28/2024 2:00 PM CDT [facility] Blood BLOOD SPECIMEN / Unknown Venipuncture / Unknown 01/28/2024 1:21 PM CDT 01/28/2024 1:46 PM CDT Elaine COOPER-C LAB - BLOOD ORDER MODESTA [facility] [address] [place] [address], [facility] * Lipase (01/28/2024 1:21 PM CDT) Lipase 21 13 - 60 U/L 01/28/2024 2:00 PM CDT [facility] Blood BLOOD SPECIMEN / Unknown Venipuncture / Unknown 01/28/2024 1:21 PM CDT 01/28/2024 1:46 PM CDT Elaine Blandon PA-C LAB - BLOOD ORDER MODESTA [facility] [address] [place] [address], [facility] * Hepatic function panel (01/28/2024 1:21 PM CDT) Protein Total 8.0 6.4 - 8.3 g/dL 01/28/2024 2:00 PM CDT [facility] Albumin 4.7 3.5 - 5.2 g/dL 01/28/2024 2:00 PM CDT [facility] Bilirubin Total 0.6 <=1.2 mg/dL 01/28/2024 2:00 PM CDT [facility] Alkaline Phosphatase 134 40 - 150 U/L 01/28/2024 2:00 PM CDT [facility] AST 41 0 - 45 U/L 01/28/2024 2:00 PM CDT [facility] Comment:Reference intervals for this test were updated on 01/04/2023 to more accurately reflect our healthy population. There may be differences in the flagging of prior results with similar values performed with this method. Interpretation of those prior results can be made in the context of the updated reference intervals. ALT 45 0 - 70 U/L 01/28/2024 2:00 PM CDT [facility] Comment:Reference intervals for this test were updated on 01/04/2023 to more accurately reflect our healthy population. There may be differences in the flagging of prior results with similar values performed with this method. Interpretation of those prior results can be made in the context of the updated reference intervals. Bilirubin Direct <0.20 0.00 - 0.30 mg/dL 01/28/2024 2:00 PM CDT [facility] Blood BLOOD SPECIMEN / Unknown Venipuncture / Unknown 01/28/2024 1:21 PM CDT 01/28/2024 1:46 PM CDT Elaine Blandon PA-C LAB - BLOOD ORDER MODESTA [facility] [address] [place] [address], [facility] * Basic metabolic panel (01/28/2024 1:21 PM CDT) [facility] Sodium 139 135 - 145 mmol/L 01/28/2024 2:00 PM CDT [facility] Potassium 4.1 3.4 - 5.3 mmol/L 01/28/2024 2:00 PM CDT [facility] Chloride 98 98 - 107 mmol/L 01/28/2024 2:00 PM T [facility] Carbon Dioxide (CO2) 28 22 - 29 mmol/L 01/28/2024 2:00 PM CDT [facility] Anion Gap 13 7 - 15 mmol/L 01/28/2024 2:00 PM T [facility] Urea Nitrogen 10.9 6.0 - 20.0 mg/dL 01/28/2024 2:00 PM CDT [facility] Creatinine 1.10 0.67 - 1.17 mg/dL 01/28/2024 2:00 PM T [facility] GFR Estimate >90 >60 mL/min/1.7 3m2 01/28/2024 2:00 PM T [facility] Comment:eGFR calculated 2020 CKD-EPI equation. Calcium 9.8 8.6 - 10.0 mg/dL 01/28/2024 2:00 PM T [facility] Glucose 84 70 - 99 mg/dL 01/28/2024 2:00 PM T [facility] Blood BLOOD SPECIMEN / Unknown Venipuncture / Unknown 01/28/2024 1:21 PM CDT 01/28/2024 1:46 PM CDT Elaine Blandon PA-C LAB - BLOOD ORDER MODESTA [facility] [address] [place], [place] [address], [facility] * (ABNORMAL) Chlamydia trachomatis/Neisseria gonorrhoeae by PCR (01/28/2024 1:13 PM CDT) [facility] Chlamydia Trachomatis Negative Negative 01/29/2024 12:15 PM CDT [facility] Comment: Negative for C. trachomatis rRNA by gasoline tractor operator mediated amplification. A negative result by gasoline tractor operator mediated amplification does not preclude the presence of infection because results are dependent on proper and adequate collection, absence of inhibitors and sufficient rRNA to be detected. Neisseria gonorrhoeae Positive(A) Negative 01/29/2024 12:15 PM CDT [facility] Comment:Positive for N. gono rrhoeae rRNA by gasoline tractor operator mediated amplification. As is true for all non-culture methods, a positive specimen obtained from a patient after therapeutic treatment cannot be interpreted as indicating the presence of viable N. gonorrhoeae. Swab URETHRAL STRUCTURE / Unknown Non-blood Collection / Unknown 01/28/2024 1:13 PM CDT 01/28/2024 1:27 PM CDT Elaine Blandon PA-C LAB - MICRO GENER AL ORDERABLES [facility] Inf. Diseases Diag. Lab [address] [place] [address], [facility] from Last 3 Months Care Teams Pattern Cutter Relationship Specialty Start Date End Date No Ref-Primary, Physician PCP - General 01/28/24
--- OUTSIDE RECORDS SUMMARY | 2024-01-30 04:18 | XMS_ITS | Clinical Summary ---
Author [facility] Address [address] [place] [address] Care Team Providers Care Relationship Counselor Name Role Phone Unknown, Provider Primary Care Provider Unavaila ble Allergies Active Allergy Reactions Criticality Noted Date Comments Cat Dander Anaphylaxis / Throat Swelling High 03/07/2017 Swelling of eyes & stuffy nose Medications Medication Sig Dispensed Refills Start Date End Date Status naloxone (NARCAN) 4 mg/actuation nasal [place], Non-Aerosol 1 [place] by nasal route once if needed. 07/09/2022 Active ibuprofen 200 mg oral Tablet Take 2 Tablets (400 mg) by mouth every 4 hours if needed. Active Immunizations Name Administration Dates Next Due DTaP Vac, <7 Yrs, IM (Daptacel,Infanrix,Tripedia) 02/28/1997 Dpt Vaccine, IM 12/12/1992, 2,1991,07/13 Hemophilus Influenza B - Unspecified ,1991,1991,07/13 Hepatitis A Vaccine, IM, Ped /Adol (2 doses) 09/26/2008,04/19/2007 Hepatitis B Vaccine - Unspecified 01/16/1992, Hepatitis B Vaccine, IM, Ped /Adol (3 doses) (Recombivax) (Engerix-B) 04/17/1993,01/16/1992,1991 MMR Vaccine (Mumps, Measles, Rubella) SQ 03/09/2001,12/12/1992 Meningococcal Conj Vac,Tetra valent, IM (Menactra) 04/19/2007 Poliovirus Vaccine, IM or SQ (IPV) 02/28,12/12/1992,1991,07/13 Poliovirus Vaccine, Oral (OP V) - Unspecified 02/28/1997,12/12/1992,1991,07/13 Td, Tetanus/Diphtheria, IM, >7 Yrs 03/07/2003 Tuberculosis (TB) Intradermal Test 04/17/1993 Varicella Vaccine, SQ (Varivax) 09/26/2008,04/19 Social History Tobacco Use Types Packs/Day Years Used Date Smoking Tobacco: Never Smokeless Tobacco: Never Tobacco Cessation:Counseling Given: Not Answered Depression (PHQ-9) Answer Date Recorded Last PHQ-9 Score Not on file 11/09/2022 Thoughts of self harm Not on file 11/09/2022 Intimate Partner Violence Answer Date R ecorded Are you in a relationship wh ere you are physically hurt, threatened and/or made to feel afraid? No 12/07/2022 Sex and Gender Information Value Date Recorded Sex Assigned at Not on file Gender Identity Not on file Sexual Orientation Not on file Last Filed Vital Signs Vital Sign Reading Time Taken Comments Blood Pressure 133/81 12/07/2022 6:07 AM CDT Pulse 70 12/07/2022 6:07 AM CDT Temperature 36.7 ??C (98 ??F) 12/07/2022 6:07 AM CDT Respiratory Rate 20 12/07/2022 6:07 AM CDT Oxygen Saturation 98% 12/07/2022 6:07 AM CDT Inhaled Oxygen Concentration - - Weight 81.6 kg (180 lb) 11/09/2022 11:05 AM CDT Height - - Body Mass Index - - Plan of Treatment Health Maintenance Due Date Last Done Comments Hepatitis C Testing 1991 DTaP/Tdap/Td Vaccines (6 - Tdap) 03/08/2003 03/07/2003, 02/28/1997, 12/12/1992, Additional history exists PHQ-9 Depression Screening 2003 HIV Screen 2006 COVID-19 Vaccine ( season) 2023 Influenza Vaccine (#1) 2024 Varicella Zoster Sequential (1 of 2) 2041 09/26/2008, 04/19/2007 HIB Vaccines Completed 12/12/1992, 10/25, 1991, Additional history exists Hepatitis B Vaccines Completed 04/17/1993, 01/16/1992, 01/16/1992, Additional history exists Meningococcal Vaccines Aged Out 04/19/2007 No lo nger eligible based on patient's age to complete this topic Hepatitis A Vaccines Completed 09/26/2008, 04/19/20 07 HPV Vaccines Aged Out No longer eligi ble based on patient's age to complete this topic Pneumococcal Vaccine (0-64 Years) Aged Out No longer eligible based on patient's age to complete this topic Care Teams Relationship Counselor Relationship Specialty Start Date End Date Unknown, [place] [address] PCP - General 11/09/22 Additional Source Comments PLEASE NOTE: Replies to this message will not be received.[facility]
--- OUTSIDE RECORDS SUMMARY | 2024-01-30 04:18 | XMS_ITS | Clinical Summary ---
Author Organization [place] Address [address] [place], [place] [address]mel[place] [address] Care Team Providers Care Courtroom Reporter Name Role Phone No Ref-Primary, Physician Primary Care Provider Allergies No known active allergies Medications Medication [...] Overview: Added automatically from request for surgery [id number] Anxiety 06/14/2020 External hemorrhoids without complication 2019 Encounters Date Type Department Care Team Description 01/29/2024 Telephone M [facility] [address] [place] [address] Jazmyne Smith RN Results 01/28/2024 11:32 AM CDT - 01/28/2024 4:18 PM CDT Emergency M [facility] Emergency Room [address] [place] [address] Robby Catherine MD Urethritis; Inguinal adenopathy Discharge Disposition: Home or Self Care 01/28/2024 Travel from Last 3 Months Social History Tobacco Use Types Packs/Day Years [...] Description 02/17/2024 1:40 PM CDT Office Visit [facility] [address] [place] [phone] Elaine Blandon PA-C [facility] [address] [place] [address] Biju Grossman PA-C [address] [facility] [place] [address] Health Maintenance Due Date Last Done Comments ADVANCE CARE PLANNING 1991 ANNUAL REVIEW OF HM ORDERS 1991 ASTHMA ACTION PLAN 1991 ASTHMA CONTROL TEST 1991 YEARLY PREVENTIVE VISIT 1991 Pneumococcal Vaccine: Pediatrics (0 to 5 Years) and At-Risk Patients (6 to 64 Years) (1 of 2 - PCV) 1997 DTAP/TDAP/TD IMMUNIZATION (6 - Tdap) 03/08/2003 03/07/2003, 02/28/1997, 12/12/1992, Additional history exists HIV SCREENING 2006 HEPATITIS C SCREENING 2009 COVID-19 Vaccine ( season) 2023 PHQ-2 (once per calendar year) 2023 INFLUENZA VACCINE (#1) 2024 HEPATITIS B IMMUNIZATION Completed 993, 01/16/1992, 1991 IPV IMMUNIZATION Completed 02/28/1997, , 1991, Additional history exists MENINGITIS IMMUNIZATION Aged Out 04/19/2007 No l onger eligible based on patient's age to complete this topic HPV IMMUNIZATION Aged Out No longer e ligible based on patient's age to complete this topic RSV MONOCLONAL ANTIBODY Aged Out No l onger eligible based on patient's age to complete [...] GONORRHOEAE BY PCR STAT 01/28/2024 1:13 PM [facility] from Last 3 Months Results * (ABNORMAL) UA with Microscopic reflex to Culture (01/28/2024 3:45 PM [facility]) Color Urine Colorless Colorless, Straw, Light Yellow, Yellow 01/28/2024 4:[address] [facility] Appearance Urine Clear Clear 01/28/2024 4:[address] [facility] Glucose Urine Negative Negative mg/dL 01/28/2024 4:[address] [facility] Bilirubin Urine Negative Negative 4:[address] [facility] Ketones Urine Trace(A) Negative mg/dL 01/28/2024 4:[address] [facility] Specific [place] Urine 1.020 1.003 - 1.035 OMAR 01/28/2024 4:[address] [facility] Blood Urine 0.2 mg/dL(A) Negative 01/28/2024 4:[address] [facility] pH Urine 6.0 5.0 - 7.0 01/28/2024 4:[address] [facility] Protein Albumin Urine 70(A) Negative mg/dL 01/28/2024 4:[address] [facility] Urobilinogen Urine <2.0 <2.0 mg/dL 01/28/2024 4:[address] [facility] Nitrite Urine Negative Negative 01/28/2024 4:[address] [facility] Leukocyte Esterase Urine 500 William/uL(A) Negative 01/28/2024 4:[address] [facility] Mucus Urine Present(A) None Seen /LPF 01/28/2024 4:[address] [facility] RBC Urine 23(H) <=2 /HPF 01/28/2024 4:[address] [facility] WBC Urine 75(H) <=5 /HPF 01/28/2024 4:[address] [facility] Squamous Epithelials Urine <1 <=1 /HPF 01/28/2024 4:[address] [facility] Urine URINE SPECIMEN OBTAINED BY CLEAN CATCH PROCEDURE / Unknown Non-blood Collection / Unknown 01/28/2024 3:45 PM CDT 01/28/2024 3:48 PM CDT Narrative [facility] - 01/28/2024 4:00 PM CDT Urine Culture ordered based on laboratory criteria Elaine COOPER-C LAB - URINE ORDER MODESTA [facility] [address] [place], [place] [id number] [place] [address] * Urine Culture (01/28/2024 3:45 PM CDT) Culture <10,000 CFU/mL Mixture of Urogenital Wen 01/29/2024 2:01 PM CDT [facility] Urine URINE SPECIMEN OBTAINED BY CLEAN CATCH PROCEDURE / Unknown Non-blood Collection / Unknown 01/28/2024 3:45 PM CDT 01/28/2024 4:00 PM CDT Elaine COOPER-C LAB - MICRO GENER AL ORDERABLES Performing Organization Address City/[facility]/ZIP Co de Phone Number [facility] Inf. Diseases Diag. Lab [address] [place] [address] * (ABNORMAL) Neisseria gonorrhoea PCR (01/28/2024 3:24 PM CDT) Neisseria gonorrhoeae Positive( A) Negative 01/29/2024 1:05 PM CDT [facility] Comment:Positive for N. gono rrhoeae rRNA by eeo officer mediated amplification. As is true for all non-culture methods, a positive specimen obtained from a patient after therapeutic treatment cannot be interpreted as indicating the presence of viable N. gonorrhoeae. Urine VOIDED URINE SPECIMEN / Unknown Non-blood Collection / Unknown 01/28/2024 3:24 PM CDT 01/28/2024 3:27 PM CDT Elaine COOPER-C LAB - MICRO GENER AL ORDERABLES Performing Organization Address City/[facility]/ZIP Co de Phone Number [facility] Inf. Diseases Diag. Lab [address] [place], [place] [id number] * Chlamydia trachomatis PCR (01/28/2024 3:24 PM CDT) Chlamydia trachomatis Negative Negative 01/29/2024 1:05 PM CDT [facility] Comment:A negative result by eeo officer mediated amplification does not preclude the presence of C. trachomatis infection because results are dependent on proper and adequate collection, absence of inhibitors and sufficient rRNA to be detected. Urine VOIDED URINE SPECIMEN / Unknown Non-blood Collection / Unknown 01/28/2024 3:24 PM CDT 01/28/2024 3:27 PM CDT Elaine Blandon PA-C LAB - MICRO GENER AL ORDERABLES [facility] Inf. Diseases Diag. Lab [address] * CT Abdomen Pelvis w Contrast [...] Incidental Findings Committee. [facility] [place] [facility] 2017;14:[id number]. ? 1 cm and < 4 cm: [...] EXAM: CT ABDOMEN PELVIS W CONTRAST LOCATION: [facility] DATE: 01/28/2024 INDICATION: ?stone with left CVA [...] EXAM: CT ABDOMEN PELVIS W CONTRAST LOCATION: [facility] DATE: 01/28/2024 INDICATION: ?stone with left CVA [...] ACRIncidental Findings Committee. [facility] [place] [facility] 2017;14:[id number]. ? 1 cm and < 4 cm: [...] positive history of cancer. Elaine Blandon PA-C [facility] CT ORDERABLES * (ABNORMAL) Manual Differential (01/28/2024 1:21 PM CDT) % Neutrophils 67 % OMAR 01/28/2024 2:[address] [facility] % Lymphocytes 25 % OMAR 01/28/2024 2:[address] [facility] % Monocytes 8 % OMAR 01/28/2024 2:[address] [facility] % Eosinophils 0 % OMAR 01/28/2024 2:[address] [facility] % Basophils 0 % OMAR 01/28/2024 2:[address] [facility] Absolute Neutrophils 10.0(H) 1.6 - 8.3 10e3/uL OMAR 01/28/2024 2:[address] [facility] Absolute Lymphocytes 3.7 0.8 - 5.3 10e3/uL OMAR 01/28/2024 2:[address] [facility] Absolute Monocytes 1.2 0.0 - 1.3 10e3/uL OMAR 01/28/2024 2:[address] [facility] Absolute Eosinophils 0.0 0.0 - 0.7 10e3/uL OMAR 01/28/2024 2:[address] [facility] Absolute Basophils 0.0 0.0 - 0.2 10e3/uL OMAR 01/28/2024 2:[address] [facility] RBC Morphology Confirmed RBC Indices OMAR 01/28/2024 2:[address] [facility] Platelet Assessment Automated Count Confirmed. Platelet morphology is normal. Automated Count Confirmed. Platelet morphology is normal. OMAR 01/28/2024 2:05 PM CDT [facility] Blood BLOOD SPECIMEN / Unknown Venipuncture / Unknown 01/28/2024 1:21 PM CDT 01/28/2024 1:26 PM CDT Elaine Blandon PA-C LAB - BLOOD ORDER MODESTA [facility] [address] [place] [address], [facility] * (ABNORMAL) CBC with platelets and differential (01/28/2024 1:21 PM CDT) Pathologist [facility] WBC Count 14.9(H) 4.0 - 11.0 10e3/uL 01/28/2024 2:05 PM CDT [facility] RBC Count 5.06 4.40 - 5.90 10e6/uL 01/28/2024 2:05 PM CDT [facility] Hemoglobin 15.9 13.3 - 17.7 g/dL 01/28/2024 2:05 PM CDT [facility] Hematocrit 46.5 40.0 - 53.0 % 01/28/2024 2:05 PM CDT [facility] MCV 92 78 - 100 fL 01/28/2024 2:05 PM CDT [facility] MCH 31.4 26.5 - 33.0 pg 01/28/2024 2:05 PM CDT [facility] MCHC 34.2 31.5 - 36.5 g/dL 01/28/2024 2:05 PM CDT [facility] RDW 13.3 10.0 - 15.0 % 01/28/2024 2:05 PM CDT [facility] Platelet Count 201 150 - 450 10e3/uL 01/28/2024 2:05 PM CDT [facility] NRBCs per 100 WBC 0 <1 /100 01/28/2024 2:05 PM CDT [facility] Absolute NRBCs 0.0 10e3/uL 01/28/2024 2:05 PM CDT [facility] Blood BLOOD SPECIMEN / Unknown Venipuncture / Unknown 01/28/2024 1:21 PM CDT 01/28/2024 1:26 PM CDT Elaine Edwardsmore PA-C LAB - BLOOD ORDER MODESTA [facility] [address] [facility], [facility] * Magnesium (01/28/2024 1:21 PM CDT) Magnesium 2.1 1.7 - 2.3 mg/dL 01/28/2024 2:00 PM CDT [facility] Blood BLOOD SPECIMEN / Unknown Venipuncture / Unknown 01/28/2024 1:21 PM CDT 01/28/2024 1:46 PM CDT Elaine Edwardsmore PA-C LAB - BLOOD ORDER MODESTA Performing Organization Address City/[facility]/ZIP Co de Phone Number [facility] [address] [place] [address], [facility] * Lipase (01/28/2024 1:21 PM CDT) Lipase 21 13 - 60 U/L 01/28/2024 2:00 PM CDT [facility] Blood BLOOD SPECIMEN / Unknown Venipuncture / Unknown 01/28/2024 1:21 PM CDT 01/28/2024 1:46 PM CDT Elaine Edwardsmore PA-C LAB - BLOOD ORDER MODESTA [facility] [address] [place] [address], [facility] * Hepatic function panel (01/28/2024 1:21 PM CDT) Protein Total 8.0 6.4 - 8.3 g/dL 01/28/2024 2:00 PM CDT [facility] Albumin 4.7 3.5 - 5.2 g/dL 01/28/2024 2:00 PM CDT [facility] Bilirubin Total 0.6 <=1.2 mg/dL 01/28/2024 2:00 PM CDT [facility] Alkaline Phosphatase 134 40 - 150 U/L 01/28/2024 2:00 PM CDT [facility] AST 41 0 - 45 U/L 01/28/2024 2:00 PM T [facility] Comment:Reference intervals for this test were updated on 01/04/2023 to more accurately reflect our healthy population. There may be differences in the flagging of prior results with similar values performed with this method. Interpretation of those prior results can be made in the context of the updated reference intervals. ALT 45 0 - 70 U/L 01/28/2024 2:00 PM T [facility] Comment:Reference intervals for this test were updated on 01/04/2023 to more accurately reflect our healthy population. There may be differences in the flagging of prior results with similar values performed with this method. Interpretation of those prior results can be made in the context of the updated reference intervals. Bilirubin Direct <0.20 0.00 - 0.30 mg/dL 01/28/2024 2:[address] [facility] Blood BLOOD SPECIMEN / Unknown Venipuncture / Unknown 01/28/2024 1:21 PM CDT 01/28/2024 1:46 PM CDT Elaine Blandon PA-C LAB - BLOOD ORDER MODESTA [facility] [address] [facility] [place] [address], [facility] * Basic metabolic panel (01/28/2024 1:21 PM CDT) Sodium 139 135 - 145 mmol/L 01/28/2024 2:00 PM T [facility] Potassium 4.1 3.4 - 5.3 mmol/L 01/28/2024 2:00 PM T [facility] Chloride 98 98 - 107 mmol/L 01/28/2024 2:00 PM T [facility] Carbon Dioxide (CO2) 28 22 - 29 mmol/L 01/28/2024 2:00 PM T [facility] Anion Gap 13 7 - 15 mmol/L 01/28/2024 2:00 PM T [facility] Urea Nitrogen 10.9 6.0 - 20.0 mg/dL 01/28/2024 2:00 PM CDT [facility] Creatinine 1.10 0.67 - 1.17 mg/dL 01/28/2024 2:00 PM CDT [facility] GFR Estimate >90 >60 mL/min/1.7 3m2 01/28/2024 2:00 PM CDT [facility] Comment:eGFR calculated usin 2020 CKD-EPI equation. Calcium 9.8 8.6 - 10.0 mg/dL 01/28/2024 2:00 PM CDT [facility] Glucose 84 70 - 99 mg/dL 01/28/2024 2:00 PM CDT [facility] Blood BLOOD SPECIMEN / Unknown Venipuncture / Unknown 01/28/2024 1:21 PM CDT 01/28/2024 1:46 PM CDT Elaine Blandon PA-C LAB - BLOOD ORDER MODESTA [facility] [address] * (ABNORMAL) Chlamydia trachomatis/Neisseria gonorrhoeae by PCR (01/28/2024 1:13 PM CDT) [facility] Chlamydia Trachomatis Negative Negative 01/29/2024 12:15 PM CDT [facility] Comment: Negative for C. trachomatis rRNA by eeo officer mediated amplification. A negative result by eeo officer mediated amplification does not preclude the presence of infection because results are dependent on proper and adequate collection, absence of inhibitors and sufficient rRNA to be detected. Neisseria gonorrhoeae Positive(A) Negative 01/29/2024 12:15 PM CDT [facility] Comment:Positive for N. gono rrhoeae rRNA by eeo officer mediated amplification. As is true for all non-culture methods, a positive specimen obtained from a patient after therapeutic treatment cannot be interpreted as indicating the presence of viable N. gonorrhoeae. Swab URETHRAL STRUCTURE / Unknown Non-blood Collection / Unknown 01/28/2024 1:13 PM CDT 01/28/2024 1:27 PM CDT Elaine BROC LAB - MICRO GENER AL ORDERABLES [facility] Inf. Diseases Diag. Lab [address] [place] [address], [facility] from Last 3 Months Care Teams Courtroom Reporter Relationship Specialty Start Date End Date No Ref-Primary, Physician PCP - General 01/28/24
--- OUTSIDE RECORDS SUMMARY | 2024-01-30 04:18 | XMS_ITS | Referral Summary ---
Author Organization [facility] Address [address] [place] [address] Care Team Providers Care Asphalt Layer Name Role Phone Unknown, Provider Primary Care Provider Unavaila ble Allergies Active Allergy Reactions Criticality Noted Date Comments Cat Dander Anaphylaxis / Throat Swelling High 03/07/2017 Swelling of eyes & stuffy nose Medications Medication Sig Dispensed Refills Start Date End Date Status naloxone (NARCAN) 4 mg/actuation nasal Apex, Non-Aerosol 1 Apex by nasal route once if needed. 07/09/2022 [...] Mass Index - - Plan of Treatment Not on file Care Teams Asphalt Layer Relationship Specialty Start Date End Date Unknown, Provider . JEOVANY SANTO [address] PCP - General 11/09/22 Additional Source Comments PLEASE NOTE: Replies to this message will not be received.[facility]
--- OUTSIDE RECORDS SUMMARY | 2024-01-30 04:18 | XMS_ITS | Encounter Summary ---
Author Organization [place] Address [address] [place] [address] Care Team Providers Care Surgery Aide Name Role Phone No Ref-Primary, Physician Primary Care Provider Encounter Details Date Type Department Care Team (Latest Contact Info) Description 01/28/2024 Travel Social History Tobacco Use Types Packs/Day Years Used Date Smoking Tobacco: Never Assessed Adolescent Education Answer Date Record ed Getting School Help Needed Not on file 01/27 Sex and Gender Information Value Date Recorded Sex Assigned at Not on file Gender Identity Not on file Sexual Orientation Not on file documented as of this encounter Plan of Treatment Upcoming Encounters Date Type Department Care Team (Late st Contact Info) Description 02/17/2024 1:40 PM CDT Office Visit [address] [place] [phone] Elaine Blandon PA-C [facility] [place] [address] [place] [address] Biju Grossman PA-C [address] [place] [address], [facility] [address] [place] [address] documented as of this encounter Visit Diagnoses Not on filedocumented in this encounter Care Teams Surgery Aide Relationship Specialty Start Date End Date No Ref-Primary, Physician PCP - General 01/28/24 documented as of this encounter
--- OUTSIDE RECORDS SUMMARY | 2024-01-30 04:18 | XMS_ITS | Clinical Summary ---
Author Organization [facility] Address [address] [place] [address] Care Team Providers Care Inspector And Clerk Name Role Phone Becky Hoyos MD Primary Care Provider + [phone] Source Comments You are receiving this document as you are listed as the primary care provider,follow-up provider, or the patient has been referred to you for consultation.This is in compliance with the Medicare andOhio[facility] Hospital[facility] EHR Incentive Program,which states Providers who transition their patient to another setting of careor provider of care or refers their patient to another provider of care shouldprovide summary care record for each transition of care or referral. [facility] Allergies No known active allergies Medications Medication [...] Overview: Added automatically from request for surgery [id number] Anxiety 06/14/2020 External hemorrhoids without complication 2019 [...] (195 lb 6.4 oz) 07/30/2020 10:06 AM [facility] Height 175.3 cm (5' 9) 07/30/2020 10:06 AM [facility] Body Mass Index 28.86 07/30/2020 10:06 AM [facility] Plan of Treatment Health Maintenance Due Date Last Done Comments Pneumococcal (1 - PCV) 1997 DTaP/Tdap/Td (6 - Tdap) 03/08/2003 03/07/20 03, 02/28/1997, 12/12/1992, Additional history exists Adult Preventive Visit 07/30/2022 07/30/2020 COVID-19 Vaccine (2022- season) 2023 Influenza (#1) 2024 Zoster/Shingles (1 of 2) 2041 Hib Completed [...] Name Priority Date/Time Associated Diagnosis Comments HIV 07/27 AG/AB 4TH GEN Routine 07/30/2020 11:29 AM [facility] Unprotected sex HEPATITIS C ANTIBODY, WITH REFLEX Routine 07/30/2020 11:29 AM [facility] Unprotected sex from Last 3 Months or Most Recently Relevant to Health Maintenance Results * HIV 1/2 Ag/Ab 4th Generation (07/30/2020 11:29 AM [facility]) HIV 1/2 Antigen/Anti body (4th generation) Negative (Non Reactive) Negative (Non Reactive) 07/30/2020 5:33 PM [facility] Comment:HIV-1 p24 Antigen an d HIV-1/HIV-2 Antibody not detected Blood Venipuncture / Unknown 07/30/2020 11:29 AM [facility] 07/30/2020 11:51 AM [facility] Dereck Yadav MD LAB_1 Performing Organization Address [facility] de Phone Number [facility] [address] [place] [address] * Hepatitis C Antibody, with Reflex (07/30/2020 11:29 AM [facility]) Pathologist [facility] Hepatitis C Antibody Negative (Non Reactive) Negative (Non Reactive) 07/30/2020 5:32 PM [facility] Comment:Antibodies to HCV no t detected. Does not exclude the possiblity of exposure to HCV. Blood Venipuncture / Unknown 07/30/2020 11:29 AM [facility] 07/30/2020 11:51 AM [facility] Dereck Yadav MD LAB_1 Performing Organization Address [facility] Co de Phone Number [facility] [address] [place] [address] from Last 3 Months or Most Recently Relevant to Health Maintenance Care Teams Inspector And Clerk Relationship Specialty Start Date End Date Becky Hoyos MD [address] [place] [phone] PCP - General 03/08/23
--- OUTSIDE RECORDS SUMMARY | 2024-01-30 04:18 | XMS_ITS | Encounter Summary ---
Author Organization [employer] Address [address] [facility] [place] [address] Care Team Providers Care Loan Processing Supervisor Name Role Phone No Ref-Primary, Physician Primary Care Provider Reason for Referral * Consultation (Priority: 1-2 Weeks) - Pending Review Specialty Diagnoses / Procedures Referred By Anthony rios Referred To Contact Diagnoses Inguinal adenopathy Elaine Blandon PA-C [facility] [place] [address] [place] [address] Referral ID Status Reason Start Date Expiration Date V isits Requested Visits Authorized [id number] Pending Review 01/28/2024 01/27/2025 1 1 Question Answer Reason for Referral: Establish Primary Care Comments Please be aware that coverage of these services is subject to the terms and limitations of your health insurance plan. Call member services at your health plan with any benefit or coverage questions. Reason for Visit * Reason Comments Hemorrhoids Encounter Details Date Type Department Care Team (Late st Contact Info) Description 01/28/2024 11:32 AM CDT - 01/28/2024 4:18 PM CDT Emergency [facility] Emergency Room [address] [place] [address] Robby Catherine MD [address] [place] [address] Urethritis; Inguinal adenopathy Discharge Disposition: Home or Self Care Social History Tobacco Use Types Packs/Day Years Used Date Smoking Tobacco: Never Assessed Adolescent Education Answer Date Record ed Getting School Help Needed Not on file 01/27 Sex and Gender Information Value Date Recorded Sex Assigned at Not on file Gender Identity Not on file Sexual Orientation Not on file documented as of this encounter Last Filed Vital Signs Vital Sign Reading [...] Mass Index 25.99 01/28/2024 11:11 AM CDT documented in this encounter Discharge Instructions * Discharge Instructions* Elaine Blandon PA-C - 01/28/2024 3:24 PM CDT Images from the original note were not included. You were seen in the emergency department today for your symptoms. Many of your results are still pending. The nursing team will call you and notify you in the comingdays if your results are positive. In the emergency department today, you were treated for both gonorrhea and chlamydia as they often occur together before your test results came back. NEXT STEPS: Please take your prescribed antibiotics for the full course of the medication as directed. Untreated sexually transmitted infections may result in infertility. No sexual contact for 14 days. Use a barrier method of protection during intercourse to reduce the chance of another infection. Notify your sexual partners and advise them that they must also be treated. Your CT scan showed an enlarged lymph node in your left groin and an adrenal mass. Recommend follow-up imaging specifically of the mass , please see your primary doctor in clinic to coordinate this follow-up testing. FOLLOW UP: Please follow up with your primary care clinic or [facility] for further evaluation. Often,more than one sexually transmitted infections are frequently spread together, and it is important to have an HIV test either with your primary care doctor or a free clinic. Please return to the emergency department if you develop any new, worsening, or concerning symptomsincluding but not limited to the following: Call 911 anytime you think you may need emergency care. For example, call if: You have sudden, severe pain in your belly or pelvis. Call your doctor now or seek immediate medical care if: You have new belly or pelvic pain. You have a fever. You have new or increased burning or pain with urination, or you cannot urinate. You have pain, swelling, or tenderness in the scrotum. You are and have any symptoms of an STI. Watch closely for changes in your health, and be sure to contact your doctor if: You have unusual vaginal bleeding. You have a discharge from the vagina, penis, or anus. You have any new symptoms, such as sores, bumps, rashes, blisters, or warts in the genital or anal area. You have itching, tingling, pain, or burning in the genital or anal area. You think you may have been exposed to an STI. You have a sore throat or sores in your mouth or on your tongue. * Attachments The following attachments cannot be sent through Care Everywhere. * Lymph Nodes: Swollen (Ethiopian) * Urethritis (Ethiopian) * Gonorrhea and Chlamydia Tests (Ethiopian) documented in this encounter Medications at Time of Discharge Medication Sig Dispensed Refills Start Date End Date doxycycline hyclate (VIBRAMYCIN) 100 MG capsule Take 1 capsule (100 mg) by mouth 2 times daily for 7 days 14 capsule 01/28/2024 02/04/2024 documented as of this encounter ED Notes * Vidhya Goode RN - 01/28/2024 11:12 AM CDT The patient presents to the ED with pain in his rectum. He reports history of hemorrhoids and rectal infection. HE reports he recently completed a course of antibiotics for the infection but reports he is noting reddish/greenish drainage from his rectum. He reports blood mixed in with the drainage but denies francisca bleeding from his rectum. He reports abdominal pain and bloating as well, denies vomiting. Denies fever. * Robby Catherine MD - 01/28/2024 11:00 AM CDT Emergency Department Midlevel Supervisory Note I had a face to face encounter with this patient seen by the Advanced Practice Provider (IVON). I personally made/approved the management plan and take responsibility for the patient management. I personally saw patient and performed a substantive portion of the visit including all aspects of the [facility] decision making. ED Course: 2:21 PM Elaine Blandon PA-C staffed patient with me. I agree with their assessment and plan of management, and I will see the patient. 3:03 PM I met with the patient to introduce myself, gather additional history, perform my initial exam, and discuss the plan. Procedures: I was present for the liriano portions of procedures documented in IVON/midlevel note, see midlevel notefor further details. MDM: Patient with external hemorrhoids which are chronic, also complains of penile discharge and LLQ pain, dysuria. Labs independently interpreted by me with normal hepatic panel, normal lipase, normal basic panel, mild leukocytosis at 14.9. CT scan independently interpreted by me does not demonstrate any acute finding, reviewed radiology interpretation with left inguinal adenopathy, no penile lesions. Will treat with Rocephin 500 mg IM and doxycycline. Urinalysis independently interpreted by me with white cells and red cells consistent with urethritis. 1. Urethritis 2. Inguinal adenopathy Brief HPI: Rubi Song is a 33 year old male who presents for evaluation of penile discharge and LLQ pain. Brief Physical Exam: BP 139/64 Pulse 83 Temp 97.9 ??F (36.6 ??C) (Oral) Resp 16 Ht 1.753 m (5' 9) Wt 79.8 kg (176 lb) SpO2 96% BMI 25.99 kg/m?? Physical Exam Vitals and nursing note reviewed. Constitutional: Appearance: Normal appearance. HENT: Head: Normocephalic and atraumatic. Right Ear: External ear normal. Left Ear: External ear normal. Nose: Nose normal. Eyes: Extraocular Movements: Extraocular movements intact. Conjunctiva/sclera: Conjunctivae normal. Pupils: Pupils are equal, round, and reactive to light. Pulmonary: Effort: Pulmonary effort is normal. Abdominal: Comments: Left inguinal adenopathy Musculoskeletal: General: No swelling or deformity. Normal range of motion. Cervical back: Normal range of motion. Neurological: General: No focal deficit present. Mental Status: He is alert and oriented to person, place, and time. Mental status is at baseline. Psychiatric: Mood and Affect: Mood normal. Behavior: Behavior normal. Thought Content: Thought content normal. Labs and Imaging: Results for orders placed or performed during the hospital encounter of 01/28/24 CT Abdomen Pelvis w Contrast Impression IMPRESSION: 1. Left external iliac lymphadenopathy. 2. A 3.7 cm left adrenal nodule. A 1.1 cm right adrenal nodule. See guidelines below. REFERENCE: Management of Incidental Adrenal Masses: A White Paper of the ACR Incidental Findings Committee. J Am [place] Radiol 2017;14:[id number]. ? 1 cm and < 4 cm: [...] or biopsy if positive history of cancer. Basic metabolic panel Result Value Ref Range Sodium 139 135 - 145 mmol/L Potassium 4.1 3.4 - 5.3 mmol/L Chloride 98 98 - 107 mmol/L Carbon Dioxide (CO2) 28 22 - 29 mmol/L Anion Gap 13 7 - 15 mmol/L Urea Nitrogen 10.9 6.0 - 20.0 mg/dL Creatinine 1.10 0.67 - 1.17 mg/dL GFR Estimate >90 >60 mL/min/1.73m2 Calcium 9.8 8.6 - 10.0 mg/dL Glucose 84 70 - 99 mg/dL Hepatic function panel Result Value Ref Range Protein Total 8.0 6.4 - 8.3 g/dL Albumin 4.7 3.5 - 5.2 g/dL Bilirubin Total 0.6 <=1.2 mg/dL Alkaline Phosphatase 134 40 - 150 U/L AST 41 0 - 45 U/L ALT 45 0 - 70 U/L Bilirubin Direct <0.20 0.00 - 0.30 mg/dL Result Value Ref Range Lipase 21 13 - 60 U/L Result Value Ref Range Magnesium 2.1 1.7 - 2.3 mg/dL CBC with platelets and differential Result Value Ref Range WBC Count 14.9 (H) 4.0 - 11.0 10e3/uL RBC Count 5.06 4.40 - 5.90 10e6/uL Hemoglobin 15.9 13.3 - 17.7 g/dL Hematocrit 46.5 40.0 - 53.0 % MCV 92 78 - 100 fL MCH 31.4 26.5 - 33.0 pg MCHC 34.2 31.5 - 36.5 g/dL RDW 13.3 10.0 - 15.0 % Platelet Count 201 150 - 450 10e3/uL NRBCs per 100 WBC 0 <1 /100 Absolute NRBCs 0.0 10e3/uL Manual Differential Result Value Ref Range % Neutrophils 67 % % Lymphocytes 25 % % Monocytes 8 % % Eosinophils 0 % % Basophils 0 % Absolute Neutrophils 10.0 (H) 1.6 - 8.3 10e3/uL Absolute Lymphocytes 3.7 0.8 - 5.3 10e3/uL Absolute Monocytes 1.2 0.0 - 1.3 10e3/uL Absolute Eosinophils 0.0 0.0 - 0.7 10e3/uL Absolute Basophils 0.0 0.0 - 0.2 10e3/uL RBC Morphology Confirmed RBC Indices Platelet Assessment Automated Count Confirmed. Platelet morphology is normal. Automated Count Confirmed. Platelet morphology is normal. Robby Catherine M.D. [facility] EMERGENCY ROOM [facility] [facility] [address] Robby Catherine MD 01/28/24 1508 Robby Catherine MD 01/28/24 1521 Robby Catherine MD 01/28/24 [id number] documented in this encounter Plan of Treatment Upcoming Encounters Date Type Department Care Team (Late st Contact Info) Description 02/17/2024 1:40 PM CDT Office Visit [address] [address] Elaine Blandon PA-C [facility] [address] [place] [address] Biju Grossman PA-C [address] [place] [address] Scheduled Referrals Name Type Priority Associated Diagnoses Orde r Schedule Primary Care Referral Referral Priority: 1-2 Weeks Inguinal adenopathy Expected: 01/28/2024 (Approximate), Expires: 01/27/2025 documented as of this encounter Procedures Procedure Name Priority Date/Time Associated Diagnosis Comments ROUTINE UA WITH MICROSCOPIC REFLEX TO CULTURE STAT 01/28/2024 3:45 PM CDT URINE CULTURE STAT 01/28/2024 3:45 PM CDT NEISSERIA GONORRHOEAE PCR STAT 01/28/2024 3:24 PM CDT CHLAMYDIA TRACHOMATIS PCR STAT 01/28/2024 3:[address] ABDOMEN PELVIS W CONTRAST STAT 01/28/2024 2:42 PM CDT MANUAL DIFFERENTIAL STAT 01/28/2024 1 :21 PM CDT CBC WITH PLATELETS AND DIFFERENTIAL STAT 01/28/2024 1:21 PM CDT CBC WITH PLATELETS & DIFFERENTIAL STAT 01/28/2024 1:21 PM CDT MAGNESIUM STAT 01/28/2024 1:21 PM CDT LIPASE STAT 01/28/2024 1:21 PM CDT HEPATIC FUNCTION PANEL STAT 01/28/2024 1:21 PM CDT BASIC METABOLIC PANEL STAT 01/28/2024 1:21 PM CDT CHLAMYDIA TRACHOMATIS/NEISSERIA GONORRHOEAE BY PCR STAT 01/28/2024 1:13 PM CDT documented in this encounter Results * Urine Culture (01/28/2024 3:45 PM CDT) Culture <10,000 CFU/mL Mixture of Urogenital Wen 01/29/2024 2:01 PM CDT [facility] Urine URINE SPECIMEN OBTAINED BY CLEAN CATCH PROCEDURE / Unknown Non-blood Collection / Unknown 01/28/2024 3:45 PM CDT 01/28/2024 4:00 PM CDT Elaine Blandon PA-C LAB - MICRO GENER AL ORDERABLES [facility] Inf. Diseases Diag. Lab [address] [facility], [address] [place] [id number] * (ABNORMAL) UA with Microscopic reflex to Culture (01/28/2024 3:45 PM CDT) Color Urine Colorless Colorless, Straw, Light Yellow, Yellow 01/28/2024 4:00 PM T [facility] Appearance Urine Clear Clear 01/28/2024 4:00 PM T [facility] Glucose Urine Negative Negative mg/dL 01/28/2024 4:00 PM T [facility] Bilirubin Urine Negative Negative 4:00 PM [facility] Ketones Urine Trace(A) Negative mg/dL 01/28/2024 4:00 PM T [facility] Specific [place] Urine 1.020 1.003 - 1.035 OMAR 01/28/2024 4:00 PM [facility] Blood Urine 0.2 mg/dL(A) Negative 01/28/2024 4:00 PM [facility] pH Urine 6.0 5.0 - 7.0 01/28/2024 4:00 PM [facility] Protein Albumin Urine 70(A) Negative mg/dL 01/28/2024 4:00 PM [facility] Urobilinogen Urine <2.0 <2.0 mg/dL 01/28/2024 4:00 PM CDT [facility] Nitrite Urine Negative Negative 01/28/2024 4:00 PM CDT [facility] Leukocyte Esterase Urine [address] William/uL(A) Negative 01/28/2024 4:00 PM CDT [facility] Mucus Urine Present(A) None Seen /LPF 01/28/2024 4:00 PM CDT [facility] RBC Urine 23(H) <=2 /HPF 01/28/2024 4:00 PM CDT [facility] WBC Urine 75(H) <=5 /HPF 01/28/2024 4:00 PM CDT [facility] Squamous Epithelials Urine <1 <=1 /HPF 01/28/2024 4:00 PM CDT [facility] Urine URINE SPECIMEN OBTAINED BY CLEAN CATCH PROCEDURE / Unknown Non-blood Collection / Unknown 01/28/2024 3:45 PM CDT 01/28/2024 3:48 PM CDT Narrative [facility] - 01/28/2024 4:00 PM CDT Urine Culture ordered based on laboratory criteria Elaine Blandon PA-C LAB - URINE ORDER MODESTA [facility] [address] [facility] [place] [address], [facility] * (ABNORMAL) Neisseria gonorrhoea PCR (01/28/2024 3:24 PM CDT) Neisseria gonorrhoeae Positive( A) Negative 01/29/2024 1:05 PM CDT [facility] Comment:Positive for N. gono rrhoeae rRNA by knitting inspector mediated amplification. As is true for all non-culture methods, a positive specimen obtained from a patient after therapeutic treatment cannot be interpreted as indicating the presence of viable N. gonorrhoeae. Urine VOIDED URINE SPECIMEN / Unknown Non-blood Collection / Unknown 01/28/2024 3:24 PM CDT 01/28/2024 3:27 PM CDT Elaine COOPER-C LAB - MICRO GENER AL ORDERABLES [facility] Inf. Diseases Diag. Lab [address] [facility], [address] [place], [place] [address] * Chlamydia trachomatis PCR (01/28/2024 3:24 PM CDT) Chlamydia trachomatis Negative Negative 01/29/2024 1:05 PM CDT [facility] Comment:A negative result by knitting inspector mediated amplification does not preclude the presence of C. trachomatis infection because results are dependent on proper and adequate collection, absence of inhibitors and sufficient rRNA to be detected. Urine VOIDED URINE SPECIMEN / Unknown Non-blood Collection / Unknown 01/28/2024 3:24 PM CDT 01/28/2024 3:27 PM CDT Elaine Blandon PA-C LAB - MICRO GENER AL ORDERABLES [facility] Inf. Diseases Diag. Lab [address] [facility], Room [place] [id number] * CT Abdomen Pelvis w Contrast (01/28/2024 [...] Incidental Findings Committee. J Am [place] Radiol 2017;14:[id number]. ? 1 cm and < 4 cm: [...] EXAM: CT ABDOMEN PELVIS W CONTRAST LOCATION: [facility] DATE: 01/28/2024 INDICATION: ?stone with [...] EXAM: CT ABDOMEN PELVIS W CONTRAST LOCATION: [facility] DATE: 01/28/2024 INDICATION: ?stone with [...] ACRIncidental Findings Committee. J Am [place] Radiol 2017;14:1110-3557. ? 1 cm and < 4 cm: [...] positive history of cancer. Elaine Blandon PA-C [facility] [place] [place] ORDERABLES * (ABNORMAL) Manual Differential (01/28/2024 1:21 PM CDT) % Neutrophils 67 % OMAR 01/28/2024 2:05 PM [facility] % Lymphocytes 25 % OMAR 01/28/2024 2:05 PM [facility] % Monocytes 8 % OMAR 01/28/2024 2:05 PM [facility] % Eosinophils 0 % OMAR 01/28/2024 2:05 PM [facility] % Basophils 0 % OMAR 01/28/2024 2:05 PM [facility] Absolute Neutrophils 10.0(H) 1.6 - 8.3 10e3/uL OMAR 01/28/2024 2:05 PM [facility] Absolute Lymphocytes 3.7 0.8 - 5.3 10e3/uL OMAR 01/28/2024 2:05 PM [facility] Absolute Monocytes 1.2 0.0 - 1.3 10e3/uL OMAR 01/28/2024 2:05 PM [facility] Absolute Eosinophils 0.0 0.0 - 0.7 10e3/uL OMAR 01/28/2024 2:05 PM [facility] Absolute Basophils 0.0 0.0 - 0.2 10e3/uL OMAR 01/28/2024 2:05 PM [facility] RBC Morphology Confirmed RBC Indices OMAR 01/28/2024 2:05 PM [facility] Platelet Assessment Automated Count Confirmed. Platelet morphology is normal. Automated Count Confirmed. Platelet morphology is normal. OMAR 01/28/2024 2:05 PM T [facility] Blood BLOOD SPECIMEN / Unknown Venipuncture / Unknown 01/28/2024 1:21 PM CDT 01/28/2024 1:26 PM CDT Elaine Blandon PA-C LAB - BLOOD ORDER MODESTA [facility] [address] [facility] [place] [address], [facility] * (ABNORMAL) CBC with platelets and differential (01/28/2024 1:21 PM CDT) WBC Count 14.9(H) 4.0 - 11.0 10e3/uL 01/28/2024 2:05 PM [facility] RBC Count 5.06 4.40 - 5.90 10e6/uL 01/28/2024 2:05 PM [facility] Hemoglobin 15.9 13.3 - 17.7 g/dL 01/28/2024 2:05 PM [facility] Hematocrit 46.5 40.0 - 53.0 % 01/28/2024 2:05 PM [facility] MCV 92 78 - 100 fL 01/28/2024 2:05 PM [facility] MCH 31.4 26.5 - 33.0 pg 01/28/2024 2:05 PM [facility] MCHC 34.2 31.5 - 36.5 g/dL 01/28/2024 2:05 PM [facility] RDW 13.3 10.0 - 15.0 % 01/28/2024 2:05 PM [facility] Platelet Count 201 150 - 450 10e3/uL 01/28/2024 2:05 PM [facility] NRBCs per 100 WBC 0 <1 /100 01/28/2024 2:05 PM [facility] Absolute NRBCs 0.0 10e3/uL 01/28/2024 2:05 PM [facility] Blood BLOOD SPECIMEN / Unknown Venipuncture / Unknown 01/28/2024 1:21 PM CDT 01/28/2024 1:26 PM CDT Elaine [place] PA-C LAB - BLOOD ORDER MODESTA Performing Organization Address City/[facility]/ZIP Co de Phone Number [facility] [address] [place] [address], [facility] * Magnesium (01/28/2024 1:21 PM CDT) Magnesium 2.1 1.7 - 2.3 mg/dL 01/28/2024 2:00 PM CDT [facility] Blood BLOOD SPECIMEN / Unknown Venipuncture / Unknown 01/28/2024 1:21 PM CDT 01/28/2024 1:46 PM CDT Elaine [place] PA-C LAB - BLOOD ORDER MODESTA Performing Organization Address City/[facility]/ZIP Co de Phone Number [facility] [address] [place] [address], [facility] * Lipase (01/28/2024 1:21 PM CDT) Lipase 21 13 - 60 U/L 01/28/2024 2:00 PM CDT [facility] Blood BLOOD SPECIMEN / Unknown Venipuncture / Unknown 01/28/2024 1:21 PM CDT 01/28/2024 1:46 PM CDT Elaine COOPER-C LAB - BLOOD ORDER MODESTA Performing Organization Address City/[facility]/ZIP Co de Phone Number [facility] [address] [place] [address], [facility] * Hepatic function panel (01/28/2024 1:21 PM CDT) Protein Total 8.0 6.4 - 8.3 g/dL 01/28/2024 2:00 PM CDT [facility] Albumin 4.7 3.5 - 5.2 g/dL 01/28/2024 2:00 PM CDT [facility] Bilirubin Total 0.6 <=1.2 mg/dL 01/28/2024 2:00 PM CDT [facility] Alkaline Phosphatase 134 40 - 150 U/L 01/28/2024 2:00 PM CDT [facility] AST 41 0 - 45 U/L 01/28/2024 2:00 PM CDT [facility] Comment:Reference intervals for this test were updated on 01/04/2023 to more accurately reflect our healthy population. There may be differences in the flagging of prior results with similar values performed with this method. Interpretation of those prior results can be made in the context of the updated reference intervals. ALT 45 0 - 70 U/L 01/28/2024 2:00 PM T [facility] Comment:Reference intervals for this test were updated on 01/04/2023 to more accurately reflect our healthy population. There may be differences in the flagging of prior results with similar values performed with this method. Interpretation of those prior results can be made in the context of the updated reference intervals. Bilirubin Direct <0.20 0.00 - 0.30 mg/dL 01/28/2024 2:00 PM T [facility] Blood BLOOD SPECIMEN / Unknown Venipuncture / Unknown 01/28/2024 1:21 PM CDT 01/28/2024 1:46 PM CDT Elaine Blandon PA-C LAB - BLOOD ORDER MODESTA [facility] [address] [facility] [place] [address], [facility] * Basic metabolic panel (01/28/2024 1:21 PM CDT) Sodium 139 135 - 145 mmol/L 01/28/2024 2:00 PM CDT [facility] Potassium 4.1 3.4 - 5.3 mmol/L 01/28/2024 2:00 PM CDT [facility] Chloride 98 98 - 107 mmol/L 01/28/2024 2:00 PM CDT [facility] Carbon Dioxide (CO2) 28 22 - 29 mmol/L 01/28/2024 2:00 PM CDT [facility] Anion Gap 13 7 - 15 mmol/L 01/28/2024 2:00 PM CDT [facility] Urea Nitrogen 10.9 6.0 - 20.0 mg/dL 01/28/2024 2:00 PM CDT [facility] Creatinine 1.10 0.67 - 1.17 mg/dL 01/28/2024 2:00 PM CDT [facility] GFR Estimate >90 >60 mL/min/1.7 3m2 01/28/2024 2:00 PM CDT [facility] Comment:eGFR calculated usin 2020 CKD-EPI equation. Calcium 9.8 8.6 - 10.0 mg/dL 01/28/2024 2:00 PM CDT [facility] Glucose 84 70 - 99 mg/dL 01/28/2024 2:00 PM CDT [facility] Blood BLOOD SPECIMEN / Unknown Venipuncture / Unknown 01/28/2024 1:21 PM CDT 01/28/2024 1:46 PM CDT Elaine COOPER-C LAB - BLOOD ORDER MODESTA [facility] [address] [facility] [address] [place], [place] [address] * (ABNORMAL) Chlamydia trachomatis/Neisseria gonorrhoeae by PCR (01/28/2024 1:13 PM CDT) [facility] Chlamydia Trachomatis Negative Negative 01/29/2024 12:15 PM CDT [facility] Comment: Negative for C. trachomatis rRNA by knitting inspector mediated amplification. A negative result by knitting inspector mediated amplification does not preclude the presence of infection because results are dependent on proper and adequate collection, absence of inhibitors and sufficient rRNA to be detected. Neisseria gonorrhoeae Positive(A) Negative 01/29/2024 12:15 PM CDT [facility] Comment:Positive for N. gono rrhoeae rRNA by knitting inspector mediated amplification. As is true for all non-culture methods, a positive specimen obtained from a patient after therapeutic treatment cannot be interpreted as indicating the presence of viable N. gonorrhoeae. Swab URETHRAL STRUCTURE / Unknown Non-blood Collection / Unknown 01/28/2024 1:13 PM CDT 01/28/2024 1:27 PM CDT Elaine COOPER-C LAB - MICRO GENER AL ORDERABLES [facility] Inf. Diseases Diag. Lab [address] [facility], [address] [place] [address], [facility] documented in this encounter Visit Diagnoses Diagnosis Urethritis Urethritis, unspecified Inguinal adenopathy Enlargement of lymph nodes documented in this encounter Administered Medications Inactive Administered Medications - up to 3 most recent administrations Medication Order MAR Action Action Date Dose Rate Site cefTRIAXone (ROCEPHIN) 500 mg in lidocaine injection STAT, 500 mg, Intramuscular, ONCE, On Wed01/28/24 at 1600, For 1 dose, FIRST DOSE STAT, Indications: Gonorrhea and Chlamydia Prophylaxis $Given 01/28/2024 4:09 PM CDT 500 mg Right Deltoid doxycycline hyclate (VIBRAMYCIN) capsule 100 mg STAT, 100 mg, Oral, ONCE, On Wed01/28/24 at 1630, For 1 dose, Administer at least 2 hours before or after aluminum, calcium, iron, zinc or magnesium containing products., Indications: STI $Given 01/28/2024 4:08 PM CDT 100 mg HYDROmorphone (PF) (DILAUDID) injection 0.5 mg 0.5 mg, Intravenous, EVERY 30 MIN PRN, moderate pain, severe pain, Starting on Wed01/28/24 at 1349, For 3 doses, Notify the provider to assess for uncontrolled pain or analgesic side effects. Hold while on IV PESTICIDE APPLICATOR or with regular IV opioid dosing. $Given 01/28/2024 1:53 PM CDT 0.5 mg iopamidol (ISOVUE-370) solution 90 mL 90 mL, Intravenous, ONCE, On Wed01/28/24 at 1400, For 1 dose $Given 01/28/2024 2:35 PM CDT 90 mLs sodium chloride 0.9% BOLUS 1,000 mL Intravenous, 1,000 mL, ONCE, at 1,000 mL/hr, Administer over 1 Hours, On Wed01/28/24 at 1300, For 1 dose $New Bag 01/28/2024 1:20 PM CDT 1,000 mLs 1000 mL/hr documented in this encounter Active and Recently Administered Medications Times are shown in CDT. Scheduled Medication Order 01/26/2024 01/27/2024 01/28/2024 cefTRIAXone (ROCEPHIN) 500 mg in lidocaine injection (COMPLETED) STAT, 500 mg, Intramuscular, ONCE, On Wed01/28/24 at 1600, For 1 dose, FIRST DOSE STAT, Indications: Gonorrhea and Chlamydia Prophylaxis 1609 ($Given - Provi chester: Barbi White RN) doxycycline hyclate (VIBRAMYCIN) capsule 100 mg (COMPLETED) STAT, 100 mg, Oral, ONCE, On Wed01/28/24 at 1630, For 1 dose, Administer at least 2 hours before or after aluminum, calcium, iron, zinc or magnesium containing products., Indications: STI 1608 ($Given - Provi chester: Barbi White RN) iopamidol (ISOVUE-370) solution 90 mL (COMPLETED) 90 mL, Intravenous, ONCE, On Wed01/28/24 at 1400, For 1 dose 1435 ($Given - Provi chester: Dipika Bishop, ARRT) sodium chloride 0.9% BOLUS 1,000 mL (COMPLETED) Intravenous, 1,000 mL, ONCE, at 1,000 mL/hr, Administer over 1 Hours, On Wed01/28/24 at 1300, For 1 dose 1320 ($New Bag - Pro vider: Barbi White RN)1425 (Stopped - Provider: Barbi White RN) PRN Medication Order 01/26/2024 01/27/2024 01/28/2024 HYDROmorphone (PF) (DILAUDID) injection 0.5 mg 0.5 mg, Intravenous, EVERY 30 MIN PRN, moderate pain, severe pain, Starting on Wed01/28/24 at 1349, For 3 doses, Notify the provider to assess for uncontrolled pain or analgesic side effects. Hold while on IV PESTICIDE APPLICATOR or with regular IV opioid dosing. 1353 ($Given - Provi chester: Barbi White RN) documented in this encounter Care Teams Loan Processing Supervisor Relationship Specialty Start Date End Date No Ref-Primary, Physician PCP - General 01/28/24 documented as of this encounter
--- OUTSIDE RECORDS SUMMARY | 2024-01-30 04:18 | XMS_ITS | Clinical Summary ---
Author Organization [facility] Address [place], [place] [address] Care Team Providers Care Conservation Enforcement Officer Name Role Phone Clinic, [employer] [facility] Primary Car e Provider Allergies Active [...] nasal sprayIndications:C ocaine abuse (HC) Inhale 1 [place] into affected nostril(s) each time if needed [...] Date Smoking Tobacco: Every Day Cigarettes 1 18.5 Started: 2005 Smokeless Tobacco: Never Tobacco Cessation:Ready [...] Comments Blood Pressure 125/60 07/21/2022 9:32 PM AUTOMOTIVE ELECTRICIAN Pulse 110 07/21/2022 9:32 PM AUTOMOTIVE ELECTRICIAN Temperature 36.1 ??C (97 ??F) 07/21/2022 9:32 PM AUTOMOTIVE ELECTRICIAN Respiratory Rate 22 07/21/2022 9:32 PM AUTOMOTIVE ELECTRICIAN Oxygen Saturation 97% 07/21/2022 9:32 PM AUTOMOTIVE ELECTRICIAN Inhaled Oxygen Concentration - - Weight 83.5 kg (184 lb) 07/21/2022 9:32 PM AUTOMOTIVE ELECTRICIAN Height 175.3 cm (5' 9) 07/21/2022 9:32 PM AUTOMOTIVE ELECTRICIAN Body Mass Index 27.17 07/21/2022 9:32 PM AUTOMOTIVE ELECTRICIAN Plan of Treatment Health Maintenance Due Date [...] Code Status Discussion: Reviewed Preferences Care Teams Conservation Enforcement Officer Relationship Specialty Start Date End Date [facility] [address] [place] [address] PCP - General 11/05/18
--- OUTSIDE RECORDS SUMMARY | 2024-01-30 04:18 | XMS_ITS | Encounter Summary ---
Author Organization [facility] Address [address] [place] [address] Care Team Providers Care Space Systems Operations Craftsman Name Role Phone No Ref-Primary, Physician Primary Care Provider Reason for Visit * Reason Onset Date Comments Results 01/29/2024 Encounter Details Date Type Department Care Team (Late st Contact Info) Description 01/29/2024 [facility] [address] [place] [address] Jazmyne Smith, RN Results Social History Tobacco Use Types Packs/Day Years Used Date Smoking Tobacco: Never Assessed Adolescent Education Answer Date Record ed Getting School Help Needed Not on file 01/27 Sex and Gender Information Value Date Recorded Sex Assigned at Not on file Gender Identity Not on file Sexual Orientation Not on file documented as of this encounter Miscellaneous Notes * Telephone Encounter - Jazmyne Smith, RN - 01/29/2024 2:09 PM CDT [facility] Reason for call: Lab Result Notification Lab Result (including Rx patient on, if applicable). If culture, copy of lab report at bottom. Lab Result: Component Latest Ref Rng 01/28/2024 3:24 PM N Gonorrhea PCR Negative Positive ! Legend: ! Abnormal Component Latest Ref Rng 01/28/2024 1:13 PM Neisseria gonorrhoeae Negative Positive ! Legend: ! Abnormal Creatinine Level (mg/dl) Creatinine Date Value Ref Range Status 01/28/2024 1.10 0.67 - 1.17 mg/dL Final Creatinine clearance (ml/min), if applicable Serum creatinine: 1.1 mg/dL 01/28/24 1321 Estimated creatinine clearance: 108.8 mL/min Symptoms about the same, pain is better as well, RN Recommendations/Instructions per [facility] ED lab result protocol: [facility] ED lab result protocol utilized: Gonorrhea Patient's current Symptoms: Patient states his symptoms are improving. Denies any new or worsening symptoms. Patient/career center advisor notified to contact your PCP clinic or return to the Emergency department if your: Symptoms return. Symptoms do not resolve after completing antibiotic. Symptoms worsen or other concerning symptoms. JAZMYNE SMITH RN documented in this encounter Plan of Treatment Upcoming Encounters Date Type Department Care Team (Late st Contact Info) Description 02/17/2024 1:40 PM CDT Office Visit [facility] [address] [place] [id number] Elaine Blandon PA-C [facility] [address] [place] [address] Biju Grossman PA-C [address] [facility] [place] [address] documented as of this encounter Visit Diagnoses Not on filedocumented in this encounter Care Teams Space Systems Operations Craftsman Relationship Specialty Start Date End Date No Ref-Primary, Physician PCP - General 01/28/24 documented as of this encounter
--- OUTSIDE RECORDS SUMMARY | 2024-01-30 04:18 | XMS_ITS | Continuity of Care Document ---
Author Organization [facility] Address [address] [address] [place] [address] Phone Care Team Providers Care Oyster Tonger Name Role Phone Michela Serna CRNA Unavailable Unavailab le Allergies, Adverse Reactions, Alerts Substance Reaction Status Criticality No Known Allergies Active No Inform ation Medications Medication Instructions Dosage Effective Dates (start - stop) Status Comments ProAir RespiClick 90 mcg/actuation breath activated inhale 2 puff by inhalation route every 4 - 6 hours as needed 180 MCG - Active MiralaxBisacodylMagCit Colon Prep Use as directed - No Longer Active Procedures Procedure Date Colonoscopy Flex; Dx (sep Pro) 18 cancelled appt Offic/outpt E&m New Mod-hi Advance Directives Directive Yes / No Effective Date File Name No Information Encounters Encounter Description Practice Location Reason(s) For Visit Diagnoses Date Provider Providers Copied on Encounter [facility], [address] [address], [place], [id number], [place] tel:[phone] [facility] No Information [address] Kareem Abernathy. [address] [place] [address], [address], [place], [id number] , [place]. tel:[phone] Referring Provider: Jean Lopez MD, [address] [facility] [address], [place], [address] . tel:[phone] [facility], [address] [address], [place] [place], [id number], tel:[phone] [facility] Unspecified hemorrhoidsUnspecif ied hemorrhoids 8 Scott Stafford. [address] [facility], [facility] [address], [place], [place], [id number] , [place]. tel: [phone] Referring Provider: Referral Self, USE FOR SELF REFERRALS. [facility], [address] [address], [facility] [place], [id number], [place] tel:[phone] [facility] No Information 8 Ana María Wilkinson. [address] [place] [address], [facility] [address], [place], [place], [id number] , [place]. tel: [phone] Referring Provider: Referral Self, USE FOR SELF REFERRALS. Offic/outpt E&m New Mod-hi [facility], [address] [address], [facility] [place], [id number], [place] tel:[phone] [facility] GI Symptoms or Concerns (chief complaint) Rectal bleedingLower abdominal painHemorrhoids, unspecified hemorrhoid type 8 Rashi Rose. [address] [place] [address], [facility] [address], [place], [place], [id number] , [place]. tel: [phone] Referring Provider: Referral Self, USE FOR SELF REFERRALS. Family History Family Member Type Diagnosis Age At Onset Brother Problem (finding) Alive and well Daughter Problem (finding) Alive and well Father Problem (finding) Alive and well Mother Problem (finding) asthma Sister Problem (finding) Alive and well Son Problem (finding) Alive and well Payers Payer name Insurance type Covered libertarian ID Authoriza tion(s) No Information Social History Type Description Quantity Date Captured Comments Sex Male Smoking Status No Information Chief Complaint And Reason For Visit No Information Reason For Referral Reason For Referral No Information History Of Present Illness Encounter Date Complaint History Of Prese nt Illness GI Symptoms or Concerns The dixie ent is a 27-year-old male seen for evaluation of intermittent rectal bleeding, also with intermittent lower abdominal pain.He reports intermittent rectal bleeding for the last year. He was seen in the ER in February with this and was told he had hemorrhoids and was prescribed a cream and instructed to follow up with [facility]. He tells me he continues to have intermittent bright red blood per rectum as well as some perianal swelling. He denies constipation or diarrhea. He reports one to two bowel movements per day. These are typically soft. He generally does not strain. He does report frequent heavy lifting and bearing down.In addition, he does report intermittent lower abdominal pain, which is sharp and crampy. This can last a few minutes, typically occurs only a couple of times per week. He denies any obvious triggers. He denies any association with p.o. intake. He says it can be related to bowel movements, although not typically. It is not associated with Functional Status Date Functional Assessmen t No Information Instructions Date Instruction Additional Infor michael Hemorrhoids Related to Unspe cified hemorrhoids 1. colonoscopy2. alexandra id constipation/straining/bearing down3. gradual increase in fiber (fibercon/citrucel are nonbloating supplements, take 2 per day); goal 25gm per day; may be limited by bloating4. script for HC suppository sent to pharmacy- take for only 1 week at a time5. Refer for banding/colorectal for hemorrhoids pending colonoscopy findings6. follow up after colonoscopy Related to Hemorrhoids, unspecified hemorrhoid type High Fiber Diet Related to Hemor rhoids, unspecified hemorrhoid type Assessments Type Assessment Date No Information Patient Care Teams Name Effective Dates (start - stop) Status Members No Information
--- OUTSIDE RECORDS SUMMARY | 2024-01-30 04:19 | XMS_ITS | Continuity of Care Document ---
Author Organization [facility] Address [address] [address] [place] [address] Phone Care Team Providers Care Assembler Adjuster Name Role Phone Michela Serna CRNA Unavailable [...] Diagnoses Date Provider Providers Copied on Encounter [facility], [address] [address], [place], [id number], [place] tel:[phone] [facility] No Information 201 8 Kareem Abernathy. [address] [place] [address], [address], [place], [id number] , [place]. tel:[phone] Referring Provider: Jean Lopez MD, [address] [facility] [address], [place], [address] . tel:[phone] [facility], [address] [address], [place], [id number], tel:[phone] [facility] Unspecified hemorrhoidsUnspecif ied hemorrhoids 8 Scott Stafford. [address] [facility], [facility] [address], [place], [place], [id number] , [place]. tel: [phone] Referring Provider: Referral Self, USE FOR SELF REFERRALS. [facility], [address] [address], [place], [id number], [place] tel:[phone] [facility] No Information 8 Ana María Wilkinson. [address] [place] [address], [facility] [address], [place], [place], [id number] , [place]. tel: [phone] Referring Provider: Referral Self, USE FOR SELF REFERRALS. Offic/outpt E&m New Mod-hi [facility], [address] [address], [facility] [place], [id number], [place] tel:[phone] [facility] GI Symptoms or Concerns (chief complaint) Rectal bleedingLower abdominal painHemorrhoids, unspecified hemorrhoid type 8 Rashi Rose. [address] [place] [address], [facility] [address], [place], [place], [id number] , [place]. tel: [phone] Referring Provider: Referral Self, USE FOR SELF REFERRALS. Family History Family Member Type Diagnosis Age At Onset Brother Problem (finding) Alive and well Daughter Problem (finding) Alive and well Father Problem (finding) Alive and well Mother Problem (finding) asthma Sister Problem (finding) Alive and well Son Problem (finding) Alive and well Payers Payer name Insurance type Covered green party ID Authoriza tion(s) No Information Social History [...] cream and instructed to follow up with [facility]. He tells me he continues to [...]
== END 2024-01-30 04:26 | disposition home or self-care (01) ==
LOC: ED 04:17
PROVIDERS: Emergency Provider Internal Medicine
DX: K62.89 Other specified diseases of anus and rectum (principal)
CPT/HCPCS: 99283